=== PATIENT | male | born 1965 | race Two or more races ===

== ENCOUNTER 2016-03-07 09:35 | Outpatient (CLI) | payer BC, OTHER ==
[~2016-03-07 09:35] MED LIST: AMLO10TA4 PO; ASPI-605 PO; ATOR40TA PO; BENA20TA2 PO; METO50TA3 PO; TICA90TA PO
== END 2016-03-07 23:59 | disposition home or self-care (01) ==
LOC: WOU 09:35
PROVIDERS: ATTEND Podiatrist Foot & Ankle Surgery
DX: L84 Corns and callosities (principal); M79.672 Pain in left foot; B35.3 Tinea pedis; L60.3 Nail dystrophy; F17.200 Nicotine dependence, unspecified, uncomplicated; I10 Essential (primary) hypertension; I25.10 Atherosclerotic heart disease of native coronary artery without angina pectoris; Z95.5 Presence of coronary angioplasty implant and graft; Z79.82 Long term (current) use of aspirin
CPT/HCPCS: 11055; A6402

== ENCOUNTER 2016-03-17 09:29 | Outpatient (CLI) | payer BC, OTHER ==
[2016-03-17 10:07] LABS: BASOPHILS % (AUTO) 0.4 % (0.0-2.0); DIFF TOTAL % 100 %; EOSINOPHILS # (AUTO) 0.5 /CMM (0.0-0.7); EOSINOPHILS % (AUTO) 5.4 % (0.0-6.0); HEMATOCRIT 47 % (39-51); HEMOGLOBIN 16.2 g/dL (13.5-17.5); LYMPHOCYTES # (AUTO) 2.4 /CMM (0.8-4.8); LYMPHOCYTES % (AUTO) 27.7 % (20.0-44.0); MEAN CORPUSCULAR HEMOGLOBIN 31 PG (26.0-33.0); MEAN CORPUSCULAR HGB CONC 34 g/dl (31.0-36.0); MEAN CORPUSCULAR VOLUME 89 fL (80-96); MONOCYTES # (AUTO) 0.6 /CMM (0.1-1.30); MONOCYTES % (AUTO) 6.5 % (2.0-12.0); NEUTROPHILS # (AUTO) 5.1 /CMM (1.8-8.9); PLATELET COUNT (AUTO) 147 /CMM (150-450); RED BLOOD CELL COUNT(AUTO) 5.32 MIL/uL (4.5-6.0); WHITE BLOOD COUNT (AUTO) 8.5 K/uL (4.3-11.0)
[2016-03-17 10:12] LABS: KETONES,URINE NEGATIVE (NEGATIVE); LEUKOCYTE ESTERASE ,URINE NEGATIVE (NEGATIVE); PH,URINE 5.5 (5.0-8.0)
[2016-03-17 10:14] LABS: ADD UA MICROSCOPIC NO
[2016-03-17 10:27] LABS: BILIRUBIN,TOTAL 0.6 mg/dL (0.2-1.0); CALCIUM, SERUM 9.1 mg/dL (8.5-10.1); CREATININE 0.9 mg/dL (0.6-1.3); POTASSIUM 3.7 mmol/L (3.5-5.1); TOTAL PROTEIN, SERUM 7.2 g/dL (6.4-8.2)
[2016-03-17 10:39] LABS: THYROID STIMULATING HORMONE 1.651 uIU/mL (0.358-3.74)
[2016-03-18 13:22] LABS: VIT D, 25-HYDROXY 17.6 ng/mL (30.0-100.0)
== END 2016-03-17 23:59 | disposition home or self-care (01) ==
LOC: LAB 09:29
PROVIDERS: ATTEND Legal Medicine
DX: Z12.5 Encounter for screening for malignant neoplasm of prostate (principal); I10 Essential (primary) hypertension; E55.9 Vitamin D deficiency, unspecified; E78.00 Pure hypercholesterolemia, unspecified; N39.0 Urinary tract infection, site not specified; D64.9 Anemia, unspecified; E03.9 Hypothyroidism, unspecified; Z13.89 Encounter for screening for other disorder
CPT/HCPCS: 36415; 80053-TC; 80061-TC; 81000-TC; 82306; 84153-TC; 84402-TC; 84439-TC; 84443-TC; 84550-TC; 85025-TC

== ENCOUNTER 2016-12-01 07:50 | Outpatient (CLI) | payer BC ==
[2016-12-01 08:50] LABS: BASOPHILS # (AUTO) 0.1 /CMM (0.0-0.2); BASOPHILS % (AUTO) 0.6 % (0.0-2.0); EOSINOPHILS # (AUTO) 0.5 /CMM (0.0-0.7); HEMATOCRIT 43 % (39-51); HEMOGLOBIN 14.7 g/dL (13.5-17.5); LYMPHOCYTES # (AUTO) 3.1 /CMM (0.8-4.8); LYMPHOCYTES % (AUTO) 34.5 % (20.0-44.0); MEAN CORPUSCULAR HEMOGLOBIN 30 PG (26.0-33.0); MEAN CORPUSCULAR HGB CONC 34 g/dl (31.0-36.0); MEAN CORPUSCULAR VOLUME 89 fL (80-96); MONOCYTES # (AUTO) 0.7 /CMM (0.1-1.30); MONOCYTES % (AUTO) 7.7 % (2.0-12.0); NEUTROPHILS # (AUTO) 4.6 /CMM (1.8-8.9); NEUTROPHILS % (AUTO) 51.2 % (43.0-81.0); PLATELET COUNT (AUTO) 167 /CMM (150-450); RDW COEFFICIENT OF VARIATION 13.3 (11.5-15.0); RED BLOOD CELL COUNT(AUTO) 4.85 MIL/uL (4.5-6.0); WHITE BLOOD COUNT (AUTO) 8.9 K/uL (4.3-11.0)
[2016-12-01 09:12] LABS: APPEARANCE,URINE CLEAR (CLEAR); BILIRUBIN,URINE NEGATIVE (NEGATIVE); BLOOD, URINE NEGATIVE Ery/uL (NEGATIVE); COLOR,URINE YELLOW (YELLOW); KETONES,URINE NEGATIVE (NEGATIVE); LEUKOCYTE ESTERASE ,URINE NEGATIVE (NEGATIVE); NITRITE, URINE NEGATIVE (NEGATIVE); PH,URINE 6.5 (5.0-8.0); PROTEIN,URINE NEGATIVE (NEGATIVE); UGLUCOSE NEGATIVE (NEGATIVE); UROBILINOGEN,URINE 0.2 EU/dL (0.2)
[2016-12-01 09:24] LABS: ALBUMIN 3.6 g/dL (3.4-5.0); BILIRUBIN,TOTAL 0.4 mg/dL (0.2-1.0); CALCIUM, SERUM 8.6 mg/dL (8.5-10.1); CREATININE 0.7 mg/dL (0.6-1.3); POTASSIUM 3.8 mmol/L (3.5-5.1); TOTAL PROTEIN, SERUM 6.8 g/dL (6.4-8.2)
[2016-12-01 09:38] LABS: PROSTATE SPECIFIC ANTIGEN SCR 0.78 ng/mL (0.00-4.00); THYROID STIMULATING HORMONE 3.381 uIU/mL (0.358-3.74)
[2016-12-03 10:20] LABS: *TESTOSTERONE, FREE (DIRECT) 8.6 pg/mL (7.2-24.0)
== END 2016-12-01 23:59 | disposition home or self-care (01) ==
LOC: LAB 07:50
PROVIDERS: ATTEND Legal Medicine
DX: Z00.01 Encounter for general adult medical examination with abnormal findings (principal); E55.9 Vitamin D deficiency, unspecified; R79.89 Other specified abnormal findings of blood chemistry
CPT/HCPCS: 36415; 80053-TC; 80061-TC; 81000-TC; 82306; 84153-TC; 84402-TC; 84443-TC; 85025-TC

== ENCOUNTER 2017-01-01 13:28 | Outpatient (CLI) | payer BC | END 2017-01-01 23:59 | disposition home or self-care (01) | LOC: CARD 13:28 | PROVIDERS: ATTEND Legal Medicine | DX: I65.23 Occlusion and stenosis of bilateral carotid arteries (principal) | CPT/HCPCS: 93880-TC ==

== ENCOUNTER 2017-01-15 10:01 | Outpatient (CLI) | payer BC | END 2017-01-15 23:59 | disposition home or self-care (01) | LOC: MRI 10:01 | PROVIDERS: ATTEND Legal Medicine | DX: M48.02 Spinal stenosis, cervical region (principal); M25.78 Osteophyte, vertebrae | CPT/HCPCS: 72141-TC ==

== ENCOUNTER 2017-03-19 09:20 | Outpatient (CLI) | payer BC ==
[~2017-03-19 09:20] MED LIST changes: +METO50TA16 PO; -METO50TA3 PO
[2017-03-19 10:12] LABS: BASOPHILS % (AUTO) 0.2 % (0.0-2.0); EOSINOPHILS # (AUTO) 0.7 /CMM (0.0-0.7); EOSINOPHILS % (AUTO) 6.9 % (0.0-6.0); HEMATOCRIT 45 % (39-51); HEMOGLOBIN 15.7 g/dL (13.5-17.5); LYMPHOCYTES # (AUTO) 2.9 /CMM (0.8-4.8); LYMPHOCYTES % (AUTO) 29.7 % (20.0-44.0); MEAN CORPUSCULAR HEMOGLOBIN 31 PG (26.0-33.0); MEAN CORPUSCULAR HGB CONC 35 g/dl (31.0-36.0); MEAN CORPUSCULAR VOLUME 89 fL (80-96); MONOCYTES # (AUTO) 0.5 /CMM (0.1-1.30); NEUTROPHILS # (AUTO) 5.7 /CMM (1.8-8.9); NEUTROPHILS % (AUTO) 58.2 % (43.0-81.0); PLATELET COUNT (AUTO) 145 /CMM (150-450); RDW COEFFICIENT OF VARIATION 12.4 (11.5-15.0); RED BLOOD CELL COUNT(AUTO) 5.02 MIL/uL (4.5-6.0); WHITE BLOOD COUNT (AUTO) 9.7 K/uL (4.3-11.0)
[2017-03-19 10:49] LABS: ALBUMIN 3.7 g/dL (3.4-5.0); BILIRUBIN,TOTAL 0.4 mg/dL (0.2-1.0); CALCIUM, SERUM 9.2 mg/dL (8.5-10.1); CREATININE 0.9 mg/dL (0.6-1.3); POTASSIUM 4.3 mmol/L (3.5-5.1)
== END 2017-03-19 23:59 | disposition home or self-care (01) ==
LOC: LAB 09:20
PROVIDERS: ATTEND Legal Medicine
DX: E78.00 Pure hypercholesterolemia, unspecified (principal); I10 Essential (primary) hypertension; E03.9 Hypothyroidism, unspecified
CPT/HCPCS: 36415; 80053-TC; 80061-TC; 82306; 85025-TC

== ENCOUNTER 2017-04-24 07:22 | Outpatient (CLI) | payer BC | END 2017-04-24 23:59 | disposition home or self-care (01) | LOC: MRI 07:22 | PROVIDERS: ATTEND Legal Medicine | DX: I67.82 Cerebral ischemia (principal); J32.0 Chronic maxillary sinusitis | CPT/HCPCS: 70551-TC ==

== ENCOUNTER 2017-08-24 09:37 | Outpatient (CLI) | payer BC | END 2017-08-24 23:59 | disposition home or self-care (01) | LOC: RAD 09:37 | PROVIDERS: ATTEND Legal Medicine | DX: M79.89 Other specified soft tissue disorders (principal); M79.672 Pain in left foot | CPT/HCPCS: 73630-TC ==

== ENCOUNTER 2017-11-03 09:30 | Outpatient (CLI) | payer BC ==
[~2017-11-03 09:30] MED LIST changes: -AMLO10TA4 PO; -ATOR40TA PO; -BENA20TA2 PO; +BENA20TA9 PO; +CARV12.52 PO; +CLON-418 PO; +EZET10TA14 PO; -METO50TA16 PO; +PANT40TA4 PO; -TICA90TA PO; +TRAZ-182 PO
== END 2017-11-03 23:59 | disposition home or self-care (01) ==
LOC: MSC 09:30
PROVIDERS: ATTEND Anesthesiology
DX: G89.29 Other chronic pain (principal); M48.061 Spinal stenosis, lumbar region without neurogenic claudication

== ENCOUNTER 2017-11-05 14:01 | Outpatient (CLI) | payer BC | END 2017-11-05 23:59 | disposition home or self-care (01) | LOC: WOU 14:01 | PROVIDERS: ATTEND Podiatrist Foot & Ankle Surgery | DX: M67.472 Ganglion, left ankle and foot (principal); I25.10 Atherosclerotic heart disease of native coronary artery without angina pectoris; I10 Essential (primary) hypertension; Z95.5 Presence of coronary angioplasty implant and graft; R26.2 Difficulty in walking, not elsewhere classified | CPT/HCPCS: 99213; Z7610; G0463 ==

== ENCOUNTER → 2017-11-24 | Outpatient (CLI) | payer BC | END | disposition home or self-care (01) | LOC: MSC 11:00 | PROVIDERS: ATTEND Anesthesiology | DX: M46.96 Unspecified inflammatory spondylopathy, lumbar region (principal); M51.26 Other intervertebral disc displacement, lumbar region; M47.26 Other spondylosis with radiculopathy, lumbar region; M79.2 Neuralgia and neuritis, unspecified; F11.20 Opioid dependence, uncomplicated; R51 Headache; I10 Essential (primary) hypertension; I25.10 Atherosclerotic heart disease of native coronary artery without angina pectoris; Z95.5 Presence of coronary angioplasty implant and graft; M79.662 Pain in left lower leg; M79.661 Pain in right lower leg; M25.561 Pain in right knee ==

== ENCOUNTER 2018-02-23 09:30 | Outpatient (CLI) | payer BC | END 2018-02-23 23:59 | disposition home or self-care (01) | LOC: MSC 09:30 | PROVIDERS: ATTEND Anesthesiology | DX: M47.812 Spondylosis without myelopathy or radiculopathy, cervical region (principal); R51 Headache; M46.96 Unspecified inflammatory spondylopathy, lumbar region; M51.26 Other intervertebral disc displacement, lumbar region; M47.26 Other spondylosis with radiculopathy, lumbar region; M79.2 Neuralgia and neuritis, unspecified; F11.20 Opioid dependence, uncomplicated ==

== ENCOUNTER 2018-03-23 09:30 | Outpatient (CLI) | payer BC | END 2018-03-23 23:59 | disposition home or self-care (01) | LOC: MSC 09:30 | PROVIDERS: ATTEND Anesthesiology | DX: M46.96 Unspecified inflammatory spondylopathy, lumbar region (principal); M47.26 Other spondylosis with radiculopathy, lumbar region; M47.812 Spondylosis without myelopathy or radiculopathy, cervical region; M79.2 Neuralgia and neuritis, unspecified; R51 Headache; F11.20 Opioid dependence, uncomplicated ==

== ENCOUNTER 2018-04-20 08:30 | Outpatient (CLI) | payer BC | END 2018-04-20 23:59 | disposition home or self-care (01) | LOC: MSC 08:30 | PROVIDERS: ATTEND Anesthesiology | DX: M46.96 Unspecified inflammatory spondylopathy, lumbar region (principal); M51.26 Other intervertebral disc displacement, lumbar region; M47.26 Other spondylosis with radiculopathy, lumbar region; M79.2 Neuralgia and neuritis, unspecified; M47.812 Spondylosis without myelopathy or radiculopathy, cervical region; R51 Headache; F11.20 Opioid dependence, uncomplicated ==

== ENCOUNTER 2018-05-18 09:00 | Outpatient (CLI) | payer BC | END 2018-05-18 23:59 | disposition home or self-care (01) | LOC: MSC 09:00 | PROVIDERS: ATTEND Anesthesiology | DX: M47.812 Spondylosis without myelopathy or radiculopathy, cervical region (principal); M46.96 Unspecified inflammatory spondylopathy, lumbar region; M47.26 Other spondylosis with radiculopathy, lumbar region; M79.2 Neuralgia and neuritis, unspecified; R51 Headache; I10 Essential (primary) hypertension; F11.20 Opioid dependence, uncomplicated; I25.10 Atherosclerotic heart disease of native coronary artery without angina pectoris; Z95.5 Presence of coronary angioplasty implant and graft; Z79.899 Other long term (current) drug therapy; F17.200 Nicotine dependence, unspecified, uncomplicated ==

== ENCOUNTER 2018-08-03 10:30 | Outpatient (CLI) | payer BC | END 2018-08-03 23:59 | disposition home or self-care (01) | LOC: MSC 10:30 | PROVIDERS: ATTEND Anesthesiology | DX: M46.96 Unspecified inflammatory spondylopathy, lumbar region (principal); M51.26 Other intervertebral disc displacement, lumbar region; M47.26 Other spondylosis with radiculopathy, lumbar region; M47.812 Spondylosis without myelopathy or radiculopathy, cervical region; M79.2 Neuralgia and neuritis, unspecified; R51 Headache; F11.20 Opioid dependence, uncomplicated; I10 Essential (primary) hypertension; I25.10 Atherosclerotic heart disease of native coronary artery without angina pectoris; Z95.5 Presence of coronary angioplasty implant and graft ==

== ENCOUNTER → 2018-08-06 | Day surgery (SDC) | payer BC ==
[~2018-08-06] MED LIST changes: +BUPIVACAINE 0.25% 75 MG/30 ML VIAL ONE; +DEXAMETHASONE SOD PHOSPHATE 10 MG/ML VIAL ONE; +IOHEXOL 50 ML IV ONE; +LIDOCAINE HCL/PF 1% 30 ML SDV ONE; +METRONIDAZOLE 500MG/ NS 100ML 0 ML IV ONE; +methylPREDNISolone ACETATE 80 MG/ML VIAL ONE
== END | disposition home or self-care (01) ==
LOC: DS 07:36
PROVIDERS: ATTEND Anesthesiology
DX: M47.26 Other spondylosis with radiculopathy, lumbar region (principal); F11.20 Opioid dependence, uncomplicated
CPT/HCPCS: 62323; 72020; J1040; J3490; Q9967; A6209; J1100

== ENCOUNTER 2018-09-28 07:58 | Outpatient (CLI) | payer BC ==
[~2018-09-28 07:58] MED LIST changes: -BUPIVACAINE 0.25% 75 MG/30 ML VIAL ONE; -DEXAMETHASONE SOD PHOSPHATE 10 MG/ML VIAL ONE; -EZET10TA14 PO; +EZET10TA16 PO; -IOHEXOL 50 ML IV ONE; -LIDOCAINE HCL/PF 1% 30 ML SDV ONE; -METRONIDAZOLE 500MG/ NS 100ML 0 ML IV ONE; -methylPREDNISolone ACETATE 80 MG/ML VIAL ONE
[2018-09-28 08:49] LABS: ALBUMIN 3.6 g/dL (3.4-5.0); BILIRUBIN,TOTAL 0.4 mg/dL (0.2-1.0); CALCIUM, SERUM 8.8 mg/dL (8.5-10.1); CREATININE 0.9 mg/dL (0.6-1.3); POTASSIUM 4.9 mmol/L (3.5-5.1); TOTAL PROTEIN, SERUM 6.5 g/dL (6.4-8.2)
[2018-09-28 08:57] LABS: THYROID STIMULATING HORMONE 2.572 uIU/mL (0.358-3.74)
== END 2018-09-28 23:59 | disposition home or self-care (01) ==
LOC: LAB 07:58
PROVIDERS: ATTEND Internal Medicine Cardiovascular Disease
DX: I10 Essential (primary) hypertension (principal); E11.9 Type 2 diabetes mellitus without complications; E78.5 Hyperlipidemia, unspecified; R53.83 Other fatigue
CPT/HCPCS: 36415; 80053-TC; 80061-TC; 84443-TC

== ENCOUNTER 2018-09-28 08:30 | Outpatient (CLI) | payer BC | END 2018-09-28 23:59 | disposition home or self-care (01) | LOC: MSC 08:30 | PROVIDERS: ATTEND Anesthesiology | DX: M46.96 Unspecified inflammatory spondylopathy, lumbar region (principal); M51.26 Other intervertebral disc displacement, lumbar region; M47.26 Other spondylosis with radiculopathy, lumbar region; M47.812 Spondylosis without myelopathy or radiculopathy, cervical region; M79.2 Neuralgia and neuritis, unspecified; F11.20 Opioid dependence, uncomplicated; R51 Headache ==

== ENCOUNTER 2018-10-26 11:30 | Outpatient (CLI) | payer BC | END 2018-10-26 23:59 | disposition home or self-care (01) | LOC: MSC 11:30 | PROVIDERS: ATTEND Anesthesiology | DX: M46.96 Unspecified inflammatory spondylopathy, lumbar region (principal); M51.26 Other intervertebral disc displacement, lumbar region; M47.26 Other spondylosis with radiculopathy, lumbar region; M47.812 Spondylosis without myelopathy or radiculopathy, cervical region; M79.2 Neuralgia and neuritis, unspecified; R51 Headache; F11.20 Opioid dependence, uncomplicated; I10 Essential (primary) hypertension; I25.10 Atherosclerotic heart disease of native coronary artery without angina pectoris; Z95.5 Presence of coronary angioplasty implant and graft; Z79.899 Other long term (current) drug therapy ==

== ENCOUNTER → 2018-11-23 | Outpatient (CLI) | payer BC | END | disposition home or self-care (01) | LOC: MSC 08:45 | PROVIDERS: ATTEND Anesthesiology | DX: M46.96 Unspecified inflammatory spondylopathy, lumbar region (principal); M51.26 Other intervertebral disc displacement, lumbar region; M47.26 Other spondylosis with radiculopathy, lumbar region; M47.812 Spondylosis without myelopathy or radiculopathy, cervical region; M79.2 Neuralgia and neuritis, unspecified; R51 Headache; F11.20 Opioid dependence, uncomplicated ==

== ENCOUNTER → 2018-12-23 | Outpatient (CLI) | payer BC | END | disposition home or self-care (01) | LOC: MSC 09:30 | PROVIDERS: ATTEND Anesthesiology | DX: M46.96 Unspecified inflammatory spondylopathy, lumbar region (principal); M51.26 Other intervertebral disc displacement, lumbar region; M47.26 Other spondylosis with radiculopathy, lumbar region; M47.812 Spondylosis without myelopathy or radiculopathy, cervical region; R51 Headache; M79.2 Neuralgia and neuritis, unspecified; F11.20 Opioid dependence, uncomplicated ==

== ENCOUNTER → 2019-01-25 | Outpatient (CLI) | payer BC | END | disposition home or self-care (01) | LOC: MSC 08:40 | PROVIDERS: ATTEND Anesthesiology | DX: M46.96 Unspecified inflammatory spondylopathy, lumbar region (principal); M51.26 Other intervertebral disc displacement, lumbar region; M47.26 Other spondylosis with radiculopathy, lumbar region; M47.812 Spondylosis without myelopathy or radiculopathy, cervical region; R51 Headache; M79.2 Neuralgia and neuritis, unspecified; F11.20 Opioid dependence, uncomplicated ==

== ENCOUNTER → 2019-02-22 | Outpatient (CLI) | payer BC | END | disposition home or self-care (01) | LOC: MSC 08:30 | PROVIDERS: ATTEND Anesthesiology | DX: M46.96 Unspecified inflammatory spondylopathy, lumbar region (principal); M51.26 Other intervertebral disc displacement, lumbar region; M47.26 Other spondylosis with radiculopathy, lumbar region; M47.812 Spondylosis without myelopathy or radiculopathy, cervical region; R51 Headache; M79.2 Neuralgia and neuritis, unspecified; F11.20 Opioid dependence, uncomplicated ==

== ENCOUNTER 2019-03-22 09:34 | Outpatient (CLI) | payer BC ==
[2019-03-22 12:34] LABS: BASOPHILS % (AUTO) 0.5 % (0.0-2.0); EOSINOPHILS % (AUTO) 5.7 % (0.0-6.0); HEMATOCRIT 45 % (39-51); HEMOGLOBIN 15.2 g/dL (13.5-17.5); LYMPHOCYTES # (AUTO) 1.9 /CMM (0.8-4.8); LYMPHOCYTES % (AUTO) 22.7 % (20.0-44.0); MEAN CORPUSCULAR HGB CONC 34 g/dl (31.0-36.0); MEAN CORPUSCULAR VOLUME 91 fL (80-96); MONOCYTES # (AUTO) 0.4 /CMM (0.1-1.30); MONOCYTES % (AUTO) 5.1 % (2.0-12.0); NEUTROPHILS # (AUTO) 5.7 /CMM (1.8-8.9); PLATELET COUNT (AUTO) 133 /CMM (150-450); RED BLOOD CELL COUNT(AUTO) 4.93 MIL/uL (4.5-6.0); WHITE BLOOD COUNT (AUTO) 8.6 K/uL (4.3-11.0)
[2019-03-22 12:46] LABS: ALBUMIN 3.8 g/dL (3.4-5.0); BILIRUBIN,TOTAL 0.5 mg/dL (0.2-1.0); CALCIUM, SERUM 8.8 mg/dL (8.5-10.1); CREATININE 0.8 mg/dL (0.6-1.3); POTASSIUM 3.8 mmol/L (3.5-5.1); TOTAL PROTEIN, SERUM 6.6 g/dL (6.4-8.2)
== END 2019-03-22 23:59 | disposition home or self-care (01) ==
LOC: MSC 09:34
PROVIDERS: ATTEND Anesthesiology
DX: I10 Essential (primary) hypertension (principal); E78.5 Hyperlipidemia, unspecified
CPT/HCPCS: 36415; 80053-TC; 80061-TC; 85025-TC

== ENCOUNTER → 2019-04-26 | Outpatient (CLI) | payer BC | END | disposition home or self-care (01) | LOC: MSC 08:20 | PROVIDERS: ATTEND Anesthesiology | DX: M46.96 Unspecified inflammatory spondylopathy, lumbar region (principal); M51.26 Other intervertebral disc displacement, lumbar region; M47.26 Other spondylosis with radiculopathy, lumbar region; M47.812 Spondylosis without myelopathy or radiculopathy, cervical region; M54.2 Cervicalgia; R51 Headache; M79.2 Neuralgia and neuritis, unspecified; I25.10 Atherosclerotic heart disease of native coronary artery without angina pectoris; Z95.5 Presence of coronary angioplasty implant and graft; I10 Essential (primary) hypertension; F11.20 Opioid dependence, uncomplicated; Z79.899 Other long term (current) drug therapy ==

== ENCOUNTER 2019-05-24 08:15 | Outpatient (CLI) | payer BC | END 2019-05-24 23:59 | disposition home or self-care (01) | LOC: MSC 08:15 | PROVIDERS: ATTEND Anesthesiology | DX: M46.96 Unspecified inflammatory spondylopathy, lumbar region (principal); M51.26 Other intervertebral disc displacement, lumbar region; M47.26 Other spondylosis with radiculopathy, lumbar region; M47.812 Spondylosis without myelopathy or radiculopathy, cervical region; M79.2 Neuralgia and neuritis, unspecified; R51 Headache; F11.20 Opioid dependence, uncomplicated; Z79.899 Other long term (current) drug therapy ==

== ENCOUNTER → 2019-06-21 | Outpatient (CLI) | payer BC | END | disposition home or self-care (01) | LOC: MSC 08:25 | PROVIDERS: ATTEND Anesthesiology | DX: M47.26 Other spondylosis with radiculopathy, lumbar region (principal); M46.96 Unspecified inflammatory spondylopathy, lumbar region; M51.26 Other intervertebral disc displacement, lumbar region; M47.812 Spondylosis without myelopathy or radiculopathy, cervical region; R51 Headache; M79.2 Neuralgia and neuritis, unspecified; I10 Essential (primary) hypertension; I25.10 Atherosclerotic heart disease of native coronary artery without angina pectoris; Z95.5 Presence of coronary angioplasty implant and graft; F11.20 Opioid dependence, uncomplicated; F17.200 Nicotine dependence, unspecified, uncomplicated ==

== ENCOUNTER 2019-07-19 09:10 | Outpatient (CLI) | payer BC | END 2019-07-19 23:59 | disposition home or self-care (01) | LOC: MSC 09:10 | PROVIDERS: ATTEND Anesthesiology | DX: M46.96 Unspecified inflammatory spondylopathy, lumbar region (principal); M51.26 Other intervertebral disc displacement, lumbar region; M47.26 Other spondylosis with radiculopathy, lumbar region; M47.812 Spondylosis without myelopathy or radiculopathy, cervical region; R51 Headache; M79.2 Neuralgia and neuritis, unspecified; I10 Essential (primary) hypertension; Z95.5 Presence of coronary angioplasty implant and graft; F11.20 Opioid dependence, uncomplicated ==

== ENCOUNTER 2019-08-16 08:15 | Outpatient (CLI) | payer BC | END 2019-08-16 23:59 | disposition home or self-care (01) | LOC: MSC 08:15 | PROVIDERS: ATTEND Anesthesiology | DX: M46.96 Unspecified inflammatory spondylopathy, lumbar region (principal); M51.26 Other intervertebral disc displacement, lumbar region; M47.26 Other spondylosis with radiculopathy, lumbar region; M47.812 Spondylosis without myelopathy or radiculopathy, cervical region; M79.2 Neuralgia and neuritis, unspecified; R51 Headache; F11.20 Opioid dependence, uncomplicated; I10 Essential (primary) hypertension; Z95.5 Presence of coronary angioplasty implant and graft; F17.200 Nicotine dependence, unspecified, uncomplicated; Z79.899 Other long term (current) drug therapy ==

== ENCOUNTER → 2019-09-27 | Outpatient (CLI) | payer BC | END | disposition home or self-care (01) | LOC: MSC 08:20 | PROVIDERS: ATTEND Anesthesiology | DX: M51.26 Other intervertebral disc displacement, lumbar region (principal); M47.26 Other spondylosis with radiculopathy, lumbar region; M46.96 Unspecified inflammatory spondylopathy, lumbar region; M47.812 Spondylosis without myelopathy or radiculopathy, cervical region; R51 Headache; M79.2 Neuralgia and neuritis, unspecified; I10 Essential (primary) hypertension; F11.20 Opioid dependence, uncomplicated ==

== ENCOUNTER → 2019-10-25 | Outpatient (CLI) | payer BC | END | disposition home or self-care (01) | LOC: MSC 08:15 | PROVIDERS: ATTEND Anesthesiology | DX: M46.96 Unspecified inflammatory spondylopathy, lumbar region (principal); M47.26 Other spondylosis with radiculopathy, lumbar region; M51.26 Other intervertebral disc displacement, lumbar region; M47.812 Spondylosis without myelopathy or radiculopathy, cervical region; M79.2 Neuralgia and neuritis, unspecified; R51 Headache; F11.20 Opioid dependence, uncomplicated; I10 Essential (primary) hypertension; Z95.5 Presence of coronary angioplasty implant and graft ==

== ENCOUNTER → 2019-12-06 | Outpatient (CLI) | payer BC ==
[~2019-12-06] MED LIST changes: -PANT40TA4 PO; +PANT40TA49 PO
== END | disposition home or self-care (01) ==
LOC: MSC 09:40
PROVIDERS: ATTEND Anesthesiology
DX: M46.96 Unspecified inflammatory spondylopathy, lumbar region (principal); M51.26 Other intervertebral disc displacement, lumbar region; M47.26 Other spondylosis with radiculopathy, lumbar region; M47.812 Spondylosis without myelopathy or radiculopathy, cervical region; M79.2 Neuralgia and neuritis, unspecified; R51.9 Headache, unspecified; I10 Essential (primary) hypertension; F11.20 Opioid dependence, uncomplicated

== ENCOUNTER → 2020-01-10 | Outpatient (CLI) | payer BC ==
[~2020-01-10] MED LIST changes: -EZET10TA16 PO; +EZET10TA6 PO
== END | disposition home or self-care (01) ==
LOC: MSC 08:25
PROVIDERS: ATTEND Anesthesiology
DX: M46.96 Unspecified inflammatory spondylopathy, lumbar region (principal); M51.26 Other intervertebral disc displacement, lumbar region; M47.26 Other spondylosis with radiculopathy, lumbar region; M47.812 Spondylosis without myelopathy or radiculopathy, cervical region; M79.2 Neuralgia and neuritis, unspecified; R51.9 Headache, unspecified; F11.20 Opioid dependence, uncomplicated

== ENCOUNTER 2020-02-07 08:51 | Outpatient (CLI) | payer BC | END 2020-02-07 23:59 | disposition home or self-care (01) | LOC: MSC 08:51 | PROVIDERS: ATTEND Anesthesiology | DX: M46.96 Unspecified inflammatory spondylopathy, lumbar region (principal); M51.26 Other intervertebral disc displacement, lumbar region; M47.26 Other spondylosis with radiculopathy, lumbar region; M47.812 Spondylosis without myelopathy or radiculopathy, cervical region; M79.2 Neuralgia and neuritis, unspecified; R51.9 Headache, unspecified; I10 Essential (primary) hypertension; Z98.61 Coronary angioplasty status; F11.20 Opioid dependence, uncomplicated ==

== ENCOUNTER 2020-03-06 08:25 | Outpatient (CLI) | payer BC | END 2020-03-06 23:59 | disposition home or self-care (01) | LOC: MSC 08:25 | PROVIDERS: ATTEND Anesthesiology | DX: M46.96 Unspecified inflammatory spondylopathy, lumbar region (principal); M51.26 Other intervertebral disc displacement, lumbar region; M47.26 Other spondylosis with radiculopathy, lumbar region; M47.812 Spondylosis without myelopathy or radiculopathy, cervical region; M79.2 Neuralgia and neuritis, unspecified; R51.9 Headache, unspecified; F11.20 Opioid dependence, uncomplicated ==

== ENCOUNTER → 2020-04-03 | Outpatient (CLI) | payer BC | END | disposition home or self-care (01) | LOC: MSC 08:30 | PROVIDERS: ATTEND Anesthesiology | DX: M46.96 Unspecified inflammatory spondylopathy, lumbar region (principal); M51.26 Other intervertebral disc displacement, lumbar region; M47.26 Other spondylosis with radiculopathy, lumbar region; M47.812 Spondylosis without myelopathy or radiculopathy, cervical region; M79.2 Neuralgia and neuritis, unspecified; R51.9 Headache, unspecified; F11.20 Opioid dependence, uncomplicated ==

== ENCOUNTER 2020-04-04 11:50 | Outpatient (CLI) | payer BC | END 2020-04-04 23:59 | disposition home or self-care (01) | LOC: MRI 11:50 | PROVIDERS: ATTEND Legal Medicine | DX: M47.812 Spondylosis without myelopathy or radiculopathy, cervical region (principal); M48.03 Spinal stenosis, cervicothoracic region; M25.78 Osteophyte, vertebrae; M50.223 Other cervical disc displacement at C6-C7 level; J32.0 Chronic maxillary sinusitis | CPT/HCPCS: 70551-TC; 72141-TC ==

== ENCOUNTER 2020-04-05 07:37 | Outpatient (CLI) | payer BC ==
[2020-04-05 09:05] LABS: BASOPHILS # (AUTO) 0.1 /CMM (0.0-0.2); BASOPHILS % (AUTO) 0.6 % (0.0-2.0); EOSINOPHILS % (AUTO) 6.4 % (0.0-6.0); HEMATOCRIT 41 % (39-51); HEMOGLOBIN 14.1 g/dL (13.5-17.5); LYMPHOCYTES # (AUTO) 2.4 /CMM (0.8-4.8); LYMPHOCYTES % (AUTO) 30.2 % (20.0-44.0); MEAN CORPUSCULAR HGB CONC 34 g/dl (31.0-36.0); MEAN CORPUSCULAR VOLUME 90 fL (80-96); MONOCYTES # (AUTO) 0.5 /CMM (0.1-1.30); MONOCYTES % (AUTO) 5.7 % (2.0-12.0); NEUTROPHILS # (AUTO) 4.6 /CMM (1.8-8.9); NEUTROPHILS % (AUTO) 57.1 % (43.0-81.0); PLATELET COUNT (AUTO) 148 /CMM (150-450); RED BLOOD CELL COUNT(AUTO) 4.55 MIL/uL (4.5-6.0); WHITE BLOOD COUNT (AUTO) 8.1 K/uL (4.3-11.0)
[2020-04-05 09:16] LABS: BILIRUBIN,URINE NEGATIVE (NEGATIVE); COLOR,URINE YELLOW (YELLOW); LEUKOCYTE ESTERASE ,URINE NEGATIVE (NEGATIVE); NITRITE, URINE NEGATIVE (NEGATIVE); PH,URINE 5.5 (5.0-8.0); PROTEIN,URINE NEGATIVE (NEGATIVE); UGLUCOSE NEGATIVE (NEGATIVE); UROBILINOGEN,URINE 0.2 EU/dL (0.2)
[2020-04-05 09:41] LABS: ALBUMIN 3.7 g/dL (3.4-5.0); BILIRUBIN,TOTAL 0.2 mg/dL (0.2-1.0); CREATININE 0.9 mg/dL (0.6-1.3); POTASSIUM 4.1 mmol/L (3.5-5.1); TOTAL PROTEIN, SERUM 6.9 g/dL (6.4-8.2)
[2020-04-05 10:01] LABS: PROSTATE SPECIFIC ANTIGEN SCR 1.36 ng/mL (0.00-4.00); THYROID STIMULATING HORMONE 2.796 uIU/mL (0.358-3.74); URIC ACID 5.5 mg/dL (2.6-7.2)
== END 2020-04-05 23:59 | disposition home or self-care (01) ==
LOC: LAB 07:37
PROVIDERS: ATTEND Legal Medicine
DX: I10 Essential (primary) hypertension (principal); E03.9 Hypothyroidism, unspecified; D64.9 Anemia, unspecified; E78.00 Pure hypercholesterolemia, unspecified; E55.9 Vitamin D deficiency, unspecified; Z00.00 Encounter for general adult medical examination without abnormal findings
CPT/HCPCS: 36415; 80053-TC; 80061-TC; 82306; 82626; 82728-TC; 83540-TC; 84153-TC; 84402; 84403; 84439-TC; 84443-TC; 84550-TC; 85025-TC

== ENCOUNTER 2020-05-08 10:30 | Outpatient (CLI) | payer BC | END 2020-05-08 23:59 | disposition home or self-care (01) | LOC: MSC 10:30 | PROVIDERS: ATTEND Anesthesiology | DX: M51.16 Intervertebral disc disorders with radiculopathy, lumbar region (principal); F11.20 Opioid dependence, uncomplicated; M46.96 Unspecified inflammatory spondylopathy, lumbar region; R51.0 Headache with orthostatic component, not elsewhere classified; M47.812 Spondylosis without myelopathy or radiculopathy, cervical region; M79.2 Neuralgia and neuritis, unspecified ==

== ENCOUNTER → 2020-06-05 | Outpatient (CLI) | payer BC | END | disposition home or self-care (01) | LOC: MSC 12:50 | PROVIDERS: ATTEND Anesthesiology | DX: M46.96 Unspecified inflammatory spondylopathy, lumbar region (principal); M51.26 Other intervertebral disc displacement, lumbar region; M47.26 Other spondylosis with radiculopathy, lumbar region; M47.812 Spondylosis without myelopathy or radiculopathy, cervical region; M79.2 Neuralgia and neuritis, unspecified; R51.9 Headache, unspecified; F11.20 Opioid dependence, uncomplicated ==

== ENCOUNTER → 2020-07-03 | Outpatient (CLI) | payer BC | END | disposition home or self-care (01) | LOC: MSC 08:45 | PROVIDERS: ATTEND Anesthesiology | DX: M46.96 Unspecified inflammatory spondylopathy, lumbar region (principal); M51.26 Other intervertebral disc displacement, lumbar region; M47.26 Other spondylosis with radiculopathy, lumbar region; M47.812 Spondylosis without myelopathy or radiculopathy, cervical region; F11.20 Opioid dependence, uncomplicated; M79.2 Neuralgia and neuritis, unspecified; R51.9 Headache, unspecified ==

== ENCOUNTER 2020-07-31 08:55 | Outpatient (CLI) | payer BC | END 2020-07-31 23:59 | disposition home or self-care (01) | LOC: MSC 08:55 | PROVIDERS: ATTEND Anesthesiology | DX: M51.16 Intervertebral disc disorders with radiculopathy, lumbar region (principal); M47.26 Other spondylosis with radiculopathy, lumbar region; R51.9 Headache, unspecified; M47.812 Spondylosis without myelopathy or radiculopathy, cervical region; F11.20 Opioid dependence, uncomplicated; M46.96 Unspecified inflammatory spondylopathy, lumbar region; F17.200 Nicotine dependence, unspecified, uncomplicated; Z79.899 Other long term (current) drug therapy ==

== ENCOUNTER 2020-08-28 09:16 | Outpatient (CLI) | payer BC | END 2020-08-28 23:59 | disposition home or self-care (01) | LOC: MSC 09:16 | PROVIDERS: ATTEND Anesthesiology | DX: M46.96 Unspecified inflammatory spondylopathy, lumbar region (principal); M51.26 Other intervertebral disc displacement, lumbar region; M47.26 Other spondylosis with radiculopathy, lumbar region; M47.812 Spondylosis without myelopathy or radiculopathy, cervical region; F11.20 Opioid dependence, uncomplicated; M79.2 Neuralgia and neuritis, unspecified; R51.9 Headache, unspecified ==

== ENCOUNTER 2020-10-09 09:25 | Outpatient (CLI) | payer BC ==
[~2020-10-09 09:25] MED LIST changes: +EZET10TA16 PO; -EZET10TA6 PO
== END 2020-10-09 23:59 | disposition home or self-care (01) ==
LOC: MSC 09:25
PROVIDERS: ATTEND Anesthesiology
DX: M51.26 Other intervertebral disc displacement, lumbar region (principal); M47.26 Other spondylosis with radiculopathy, lumbar region; M46.96 Unspecified inflammatory spondylopathy, lumbar region; M47.812 Spondylosis without myelopathy or radiculopathy, cervical region; F11.20 Opioid dependence, uncomplicated; R51.9 Headache, unspecified; M79.2 Neuralgia and neuritis, unspecified

== ENCOUNTER 2020-11-13 08:41 | Outpatient (CLI) | payer BC ==
[2020-11-13 09:17] LABS: BASOPHILS # (AUTO) 0.1 K/uL (0.0-0.2); BASOPHILS % (AUTO) 0.7 % (0.0-2.0); EOSINOPHILS % (AUTO) 7.5 % (0.0-6.0); HEMATOCRIT 45 % (39-51); HEMOGLOBIN 15.4 g/dL (13.5-17.5); LYMPHOCYTES # (AUTO) 2.1 K/uL (0.8-4.8); LYMPHOCYTES % (AUTO) 22.5 % (20.0-44.0); MEAN CORPUSCULAR HGB CONC 34 g/dl (31.0-36.0); MEAN CORPUSCULAR VOLUME 94 fL (80-96); MONOCYTES # (AUTO) 0.6 K/uL (0.1-1.30); MONOCYTES % (AUTO) 6.7 % (2.0-12.0); NEUTROPHILS % (AUTO) 62.6 % (43.0-81.0); PLATELET COUNT (AUTO) 143 K/uL (150-450); WHITE BLOOD COUNT (AUTO) 9.6 K/uL (4.3-11.0)
[2020-11-13 09:43] LABS: BILIRUBIN,TOTAL 0.7 mg/dL (0.2-1.0); CALCIUM, SERUM 8.5 mg/dL (8.5-10.1); CREATININE 0.8 mg/dL (0.6-1.3); POTASSIUM 4.7 mmol/L (3.5-5.1); TOTAL PROTEIN, SERUM 6.9 g/dL (6.4-8.2)
[2020-11-13 10:01] LABS: PROSTATE SPECIFIC ANTIGEN SCR 0.91 ng/mL (0.00-4.00); THYROID STIMULATING HORMONE 1.291 uIU/mL (0.358-3.74)
== END 2020-11-13 23:59 | disposition home or self-care (01) ==
LOC: LAB 08:41
PROVIDERS: ATTEND Legal Medicine
DX: E11.9 Type 2 diabetes mellitus without complications (principal); E03.9 Hypothyroidism, unspecified; E78.5 Hyperlipidemia, unspecified; R53.83 Other fatigue; R97.20 Elevated prostate specific antigen [PSA]
CPT/HCPCS: 36415; 80053-TC; 80061-TC; 84153-TC; 84443-TC; 85025-TC

== ENCOUNTER 2020-11-13 09:00 | Outpatient (CLI) | payer BC | END 2020-11-13 23:59 | disposition home or self-care (01) | LOC: MSC 09:00 | PROVIDERS: ATTEND Anesthesiology | DX: M51.26 Other intervertebral disc displacement, lumbar region (principal); M46.96 Unspecified inflammatory spondylopathy, lumbar region; M47.26 Other spondylosis with radiculopathy, lumbar region; M47.812 Spondylosis without myelopathy or radiculopathy, cervical region; F11.20 Opioid dependence, uncomplicated; M79.2 Neuralgia and neuritis, unspecified; R51.9 Headache, unspecified ==

== ENCOUNTER 2020-12-11 09:20 | Outpatient (CLI) | payer BC | END 2020-12-11 23:59 | disposition home or self-care (01) | LOC: MSC 09:20 | PROVIDERS: ATTEND Anesthesiology | DX: M46.96 Unspecified inflammatory spondylopathy, lumbar region (principal); M51.26 Other intervertebral disc displacement, lumbar region; M47.26 Other spondylosis with radiculopathy, lumbar region; M47.812 Spondylosis without myelopathy or radiculopathy, cervical region; F11.20 Opioid dependence, uncomplicated; M79.2 Neuralgia and neuritis, unspecified; R51.9 Headache, unspecified ==

== ENCOUNTER 2021-01-08 09:50 | Outpatient (CLI) | payer BC | END 2021-01-08 23:59 | disposition home or self-care (01) | LOC: MSC 09:50 | PROVIDERS: ATTEND Anesthesiology | DX: M46.96 Unspecified inflammatory spondylopathy, lumbar region (principal); M51.26 Other intervertebral disc displacement, lumbar region; M47.26 Other spondylosis with radiculopathy, lumbar region; M47.812 Spondylosis without myelopathy or radiculopathy, cervical region; F11.20 Opioid dependence, uncomplicated; M79.2 Neuralgia and neuritis, unspecified; F17.200 Nicotine dependence, unspecified, uncomplicated ==

== ENCOUNTER 2021-02-05 09:30 | Outpatient (CLI) | payer BC | END 2021-02-05 23:59 | disposition home or self-care (01) | LOC: MSC 09:30 | PROVIDERS: ATTEND Anesthesiology | DX: M25.511 Pain in right shoulder (principal); M46.96 Unspecified inflammatory spondylopathy, lumbar region; M47.26 Other spondylosis with radiculopathy, lumbar region; M51.26 Other intervertebral disc displacement, lumbar region; M47.812 Spondylosis without myelopathy or radiculopathy, cervical region; F11.20 Opioid dependence, uncomplicated; M79.2 Neuralgia and neuritis, unspecified; R51.9 Headache, unspecified ==

== ENCOUNTER 2021-03-12 08:20 | Outpatient (CLI) | payer BC | END 2021-03-12 23:59 | disposition home or self-care (01) | LOC: MSC 08:20 | PROVIDERS: ATTEND Anesthesiology | DX: M46.96 Unspecified inflammatory spondylopathy, lumbar region (principal); M47.26 Other spondylosis with radiculopathy, lumbar region; M51.26 Other intervertebral disc displacement, lumbar region; M47.812 Spondylosis without myelopathy or radiculopathy, cervical region; F11.20 Opioid dependence, uncomplicated; M79.2 Neuralgia and neuritis, unspecified; R51.9 Headache, unspecified; Z79.899 Other long term (current) drug therapy; Z79.1 Long term (current) use of non-steroidal anti-inflammatories (NSAID) ==

== ENCOUNTER → 2021-04-02 | Outpatient (CLI) | payer BC | END | disposition home or self-care (01) | LOC: MSC 12:00 | PROVIDERS: ATTEND Anesthesiology | DX: M47.812 Spondylosis without myelopathy or radiculopathy, cervical region (principal); M46.96 Unspecified inflammatory spondylopathy, lumbar region; M51.26 Other intervertebral disc displacement, lumbar region; M47.26 Other spondylosis with radiculopathy, lumbar region; F11.20 Opioid dependence, uncomplicated; M79.2 Neuralgia and neuritis, unspecified; R51.9 Headache, unspecified; F17.200 Nicotine dependence, unspecified, uncomplicated ==

== ENCOUNTER 2021-04-30 08:40 | Outpatient (CLI) | payer BC | END 2021-04-30 23:59 | disposition home or self-care (01) | LOC: MSC 08:40 | PROVIDERS: ATTEND Anesthesiology | DX: M46.96 Unspecified inflammatory spondylopathy, lumbar region (principal); M51.26 Other intervertebral disc displacement, lumbar region; M47.26 Other spondylosis with radiculopathy, lumbar region; M47.812 Spondylosis without myelopathy or radiculopathy, cervical region; F11.20 Opioid dependence, uncomplicated; M79.2 Neuralgia and neuritis, unspecified; R51.9 Headache, unspecified ==

== ENCOUNTER 2021-06-05 08:50 | Outpatient (CLI) | payer BC ==
[2021-07-05] MEDS ORDERED: AMOX-430 PO (12:37)
[2021-07-05] MEDS ORDERED: METH4TAB17 PO (12:37)
[2021-07-05] MEDS ORDERED: ALBU6.7H9 INH (12:37)
[2021-07-05] MEDS ORDERED: PROM118S5 PO (12:37)
[2021-07-05] MEDS ORDERED: ALBU18HF2 INH (12:37)
== END 2021-06-05 23:59 | disposition home or self-care (01) ==
LOC: MSC 08:50
PROVIDERS: ATTEND Anesthesiology
DX: M46.96 Unspecified inflammatory spondylopathy, lumbar region (principal); M51.26 Other intervertebral disc displacement, lumbar region; M47.26 Other spondylosis with radiculopathy, lumbar region; M47.812 Spondylosis without myelopathy or radiculopathy, cervical region; F11.20 Opioid dependence, uncomplicated; M79.2 Neuralgia and neuritis, unspecified; R51.9 Headache, unspecified

== ENCOUNTER 2021-06-26 13:11 | Emergency (ER) | payer BC ==
[~2021-06-26] VITALS: Ht 182.9 cm; Wt 97.1 kg
--- NOTE | 2021-06-26 13:18 | NUR ---
BIB c/o pain to left heel, R hip, chest and back s/p fell off the ladder about 10ft high x yesterday, -ko. The patient rates pains 10/10. No apparent deformity noted. Will continue to monitor the patient.
--- NOTE | 2021-06-26 14:16 | NUR ---
DR IRVING AT THE BEDSIDE
[2021-06-26 15:19] VITALS: BP 133/82
--- NOTE | 2021-06-26 15:19 | NUR ---
Patient discharged to home in stable condition. Written and verbal after care instructions given. Patient verbalizes understanding of instruction.
[2021-07-05] MEDS ORDERED: AMOX-430 PO (12:37)
[2021-07-05] MEDS ORDERED: METH4TAB17 PO (12:37)
[2021-07-05] MEDS ORDERED: PROM118S5 PO (12:37)
[2021-07-05] MEDS ORDERED: ALBU6.7H9 INH (12:37)
[2021-07-05] MEDS ORDERED: ALBU18HF2 INH (12:37)
== END 2021-06-26 15:19 | disposition home or self-care (01) ==
LOC: ER 13:21
DX: S90.32XA Contusion of left foot, initial encounter (principal); S70.01XA Contusion of right hip, initial encounter; S30.0XXA Contusion of lower back and pelvis, initial encounter; S20.219A Contusion of unspecified front wall of thorax, initial encounter; I10 Essential (primary) hypertension; F17.210 Nicotine dependence, cigarettes, uncomplicated; Z79.899 Other long term (current) drug therapy; Z98.890 Other specified postprocedural states; Z79.82 Long term (current) use of aspirin; W11.XXXA Fall on and from ladder, initial encounter; Y93.89 Activity, other specified; Y92.89 Other specified places as the place of occurrence of the external cause; Y99.8 Other external cause status
CPT/HCPCS: 71250-TC; 73590-TC; 73630-TC

== ENCOUNTER 2021-07-02 10:17 | Outpatient (CLI) | payer BC ==
[2021-07-04] MEDS ORDERED: methylPREDNISolone SOD SUCC 125 MG/2ML VIAL ONE (22:40)
[2021-07-05] MEDS ORDERED: ALBU18HF2 INH (12:37)
[2021-07-05] MEDS ORDERED: METH4TAB17 PO (12:37)
[2021-07-05] MEDS ORDERED: ALBU6.7H9 INH (12:37)
[2021-07-05] MEDS ORDERED: AMOX-430 PO (12:37)
[2021-07-05] MEDS ORDERED: PROM118S5 PO (12:37)
== END 2021-07-02 23:59 | disposition home or self-care (01) ==
LOC: MSC 10:17
PROVIDERS: ATTEND Anesthesiology
DX: M47.812 Spondylosis without myelopathy or radiculopathy, cervical region (principal); M47.26 Other spondylosis with radiculopathy, lumbar region; M46.96 Unspecified inflammatory spondylopathy, lumbar region; M51.26 Other intervertebral disc displacement, lumbar region; R51.9 Headache, unspecified; F11.20 Opioid dependence, uncomplicated; M79.2 Neuralgia and neuritis, unspecified; Z76.0 Encounter for issue of repeat prescription
CPT/HCPCS: J2930

== ENCOUNTER 2021-07-04 21:50 | Inpatient (IN) | payer BC ==
[~2021-07-04] VITALS: Ht 180.3 cm; Wt 100.7 kg
[2021-07-04] MEDS ORDERED: IPRATROPIUM NEB FS 0.5 MG/2.5 ML AMPUL.NEB NEB ONE (22:30)
[2021-07-04] MEDS ORDERED: methylPREDNISolone SOD SUCC 125 MG/2ML VIAL IV ONE (22:30)
[2021-07-04] MEDS ORDERED: ALBUTEROL FS 2.5 MG/0.5 ML VIAL.NEB NEB ONE (22:30)
[2021-07-04] MEDS ORDERED: IPRATROPIUM NEB FS 0.5 MG/2.5 ML AMPUL.NEB ONE (22:31)
[2021-07-04] MEDS ORDERED: ALBUTEROL FS 2.5 MG/0.5 ML VIAL.NEB ONE (22:31)
[2021-07-04 22:57] LABS: BASOPHILS % (AUTO) 0.2 % (0.0-2.0); EOSINOPHILS % (AUTO) 5.5 % (0.0-6.0); HEMATOCRIT 40 % (39-51); HEMOGLOBIN 13.5 g/dL (13.5-17.5); LYMPHOCYTES % (AUTO) 8.1 % (20.0-44.0); MEAN CORPUSCULAR HGB CONC 34 g/dl (31.0-36.0); MEAN CORPUSCULAR VOLUME 94 fL (80-96); MONOCYTES % (AUTO) 8.3 % (2.0-12.0); NEUTROPHILS # (AUTO) 9.2 K/uL (1.8-8.9); NEUTROPHILS % (AUTO) 77.9 % (43.0-81.0); PLATELET COUNT (AUTO) 128 K/uL (150-450); RED BLOOD CELL COUNT(AUTO) 4.28 MIL/uL (4.5-6.0); WHITE BLOOD COUNT (AUTO) 11.8 K/uL (4.3-11.0)
[2021-07-04 23:09] LABS: CALCIUM, SERUM 8.4 mg/dL (8.5-10.1); CARBON DIOXIDE 22 mmol/L (21-32); CHLORIDE 103 mmol/L (98-107); CREATININE 1.1 mg/dL (0.6-1.3); GLUCOSE 160 mg/dL (74-106); POTASSIUM 4.1 mmol/L (3.5-5.1); SODIUM SERUM 135 mmol/L (136-145); UREA NITROGEN, BLOOD 15 mg/dL (7-18)
[2021-07-04 23:22] LABS: ALANINE AMINOTRANSFERASE 29 U/L (12-78); ALBUMIN 3.4 g/dL (3.4-5.0); ALKALINE PHOSPHATASE 113 U/L (46-116); ASPARTATE AMINOTRANSFERASE 15 U/L (15-37); BILIRUBIN,DIRECT 0.2 mg/dL (0.0-0.2); BILIRUBIN,TOTAL 0.7 mg/dL (0.2-1.0); TOTAL PROTEIN, SERUM 6.6 g/dL (6.4-8.2)
[2021-07-05 01:00] VITALS: BP 133/71
[2021-07-05] MEDS ORDERED: ENOXAPARIN SODIUM 40 MG/0.4 ML DISP.SYRIN SQ SCH (01:30)
[2021-07-05] MEDS ORDERED: ALBUTEROL FS 2.5 MG/0.5 ML VIAL.NEB NEB PRN (01:30)
[2021-07-05] MEDS ORDERED: ACETAMINOPHEN 650 MG/20.3 ML UDC NG PRN (01:30)
[2021-07-05] MEDS ORDERED: CLONIDINE HCL 0.1 MG TABLET PO PRN (01:30)
[2021-07-05] MEDS ORDERED: CEFTRIAXONE 1 G in IV D5W 50 ML IV SCH (02:00)
[2021-07-05] MEDS ORDERED: MORPHINE SULFATE INJ 2 MG/ML DISP.SYRIN IM/IV PRN (02:00)
[2021-07-05] MEDS ORDERED: CEFTRIAXONE 1 G VIAL ONE (02:04)
[2021-07-05] MEDS: ALBUTEROL FS 2.5 MG/0.5 ML VIAL.NEB NEB SCH ×2 (04:11→08:03)
[2021-07-05] MEDS ORDERED: MORPHINE SULFATE INJ 2 MG/ML DISP.SYRIN IVP PRN (04:30)
[2021-07-05 05:00] VITALS: BP 105/44
[2021-07-05] MEDS: methylPREDNISolone SOD SUCC 40 MG/ML VIAL IV SCH ×2 (05:10→12:40)
[2021-07-05] MEDS ORDERED: PANTOPRAZOLE 40 MG VIAL IV SCH (07:30)
[2021-07-05] MEDS ORDERED: ATOR40TA PO (08:53)
[2021-07-05] MEDS ORDERED: NIFE60TA73 PO (08:53)
[2021-07-05] MEDS ORDERED: Medication Not On Formulary EA (Clonidine HCl (Clonidine HCl ER) 0.1 MG) PO SCH (10:00)
[2021-07-05] MEDS ORDERED: AMOX-430 PO (12:37)
[2021-07-05] MEDS ORDERED: ALBU6.7H9 INH (12:37)
[2021-07-05] MEDS ORDERED: PROM118S5 PO (12:37)
[2021-07-05] MEDS ORDERED: ALBU18HF2 INH (12:37)
[2021-07-05] MEDS ORDERED: METH4TAB17 PO (12:37)
[2021-07-05] MEDS ORDERED: IPRATROPIUM NEB FS 0.5 MG/2.5 ML AMPUL.NEB NEB SCH (13:30)
[2021-07-05] MEDS ORDERED: BENAZEPRIL HCL 20 MG TABLET PO SCH (17:00)
[2021-07-05] MEDS ORDERED: CARVEDILOL 12.5 MG TABLET PO SCH (17:00)
[2021-07-05] MEDS ORDERED: ATORVASTATIN 40 MG TABLET PO SCH (22:00)
[2021-07-06] MEDS ORDERED: PANTOPRAZOLE 40 MG TABLET.DR PO SCH (07:30)
[2021-07-06] MEDS ORDERED: EZETIMIBE 10 MG TABLET PO SCH (09:00)
[2021-07-06] MEDS ORDERED: NIFEdipine XL (30MG) 30 MG TAB PO SCH (09:00)
[2021-07-06] MEDS ORDERED: ASPIRIN EC 81 MG TABLET.DR PO SCH (09:00)
== END 2021-07-05 13:00 | disposition home or self-care (01) | DRG 191 ==
LOC: ER 21:56 → TELE1 07-05 00:37
PROVIDERS: ADMIT Legal Medicine; ATTEND Legal Medicine
DX: J44.0 Chronic obstructive pulmonary disease with (acute) lower respiratory infection (principal); J98.11 Atelectasis; J20.9 Acute bronchitis, unspecified; J44.1 Chronic obstructive pulmonary disease with (acute) exacerbation; Z20.822 Contact with and (suspected) exposure to COVID-19; I25.10 Atherosclerotic heart disease of native coronary artery without angina pectoris; Z98.61 Coronary angioplasty status; I10 Essential (primary) hypertension; Z79.899 Other long term (current) drug therapy; Z79.82 Long term (current) use of aspirin; F17.210 Nicotine dependence, cigarettes, uncomplicated; Z91.81 History of falling; E78.5 Hyperlipidemia, unspecified; R09.02 Hypoxemia; K21.9 Gastro-esophageal reflux disease without esophagitis; M19.90 Unspecified osteoarthritis, unspecified site; G89.29 Other chronic pain
CPT/HCPCS: 36415; 71045-TC; 80048-TC; 80076-TC; 83605-TC; 83735-TC; 83880; 84484-TC; 85025-TC; 85730-TC; 87040-TC; 87081-TC; 93970-TC; 94799-TC; C9113; C9803; G0378; J0696; J1650; J2920; J7050; J7060

== ENCOUNTER 2021-08-13 08:42 | Outpatient (CLI) | payer BC ==
[~2021-08-13 08:42] MED LIST changes: +ALBU18HF2 INH; +ALBU6.7H9 INH; +AMOX-430 PO; +ATOR40TA PO; +METH4TAB17 PO; +NIFE60TA73 PO; +PROM118S5 PO; -TRAZ-182 PO
== END 2021-08-13 23:59 | disposition home or self-care (01) ==
LOC: MSC 08:42
PROVIDERS: ATTEND Anesthesiology
DX: M46.96 Unspecified inflammatory spondylopathy, lumbar region (principal); M51.26 Other intervertebral disc displacement, lumbar region; M47.26 Other spondylosis with radiculopathy, lumbar region; M47.812 Spondylosis without myelopathy or radiculopathy, cervical region; F11.20 Opioid dependence, uncomplicated; M79.2 Neuralgia and neuritis, unspecified; R51.9 Headache, unspecified; F17.200 Nicotine dependence, unspecified, uncomplicated

== ENCOUNTER 2021-09-03 08:40 | Outpatient (CLI) | payer BC | END 2021-09-03 23:59 | disposition home or self-care (01) | LOC: MSC 08:40 | PROVIDERS: ATTEND Anesthesiology | DX: M25.571 Pain in right ankle and joints of right foot (principal); M25.572 Pain in left ankle and joints of left foot; W11.XXXA Fall on and from ladder, initial encounter; M46.96 Unspecified inflammatory spondylopathy, lumbar region; M51.26 Other intervertebral disc displacement, lumbar region; M47.26 Other spondylosis with radiculopathy, lumbar region; M47.812 Spondylosis without myelopathy or radiculopathy, cervical region; F11.20 Opioid dependence, uncomplicated; R51.9 Headache, unspecified; M79.2 Neuralgia and neuritis, unspecified ==

== ENCOUNTER 2021-10-04 10:02 | Outpatient (CLI) | payer BC | END 2021-10-04 23:59 | disposition home or self-care (01) | LOC: MRI 10:02 | PROVIDERS: ATTEND Anesthesiology | DX: M25.872 Other specified joint disorders, left ankle and foot (principal); R60.9 Edema, unspecified; Z96.698 Presence of other orthopedic joint implants; M25.572 Pain in left ankle and joints of left foot | CPT/HCPCS: 73718-TC; 73721-TC ==

== ENCOUNTER 2021-10-08 08:35 | Outpatient (CLI) | payer BC | END 2021-10-08 23:59 | disposition home or self-care (01) | LOC: MSC 08:35 | PROVIDERS: ATTEND Anesthesiology | DX: M25.571 Pain in right ankle and joints of right foot (principal); M25.572 Pain in left ankle and joints of left foot; M51.26 Other intervertebral disc displacement, lumbar region; M47.26 Other spondylosis with radiculopathy, lumbar region; M46.96 Unspecified inflammatory spondylopathy, lumbar region; M47.812 Spondylosis without myelopathy or radiculopathy, cervical region; R51.9 Headache, unspecified; F11.20 Opioid dependence, uncomplicated; F17.200 Nicotine dependence, unspecified, uncomplicated ==

== ENCOUNTER 2021-10-24 09:18 | Outpatient (CLI) | payer BC | END 2021-10-24 23:59 | disposition home or self-care (01) | LOC: WOU 09:18 | PROVIDERS: ATTEND Podiatrist Foot & Ankle Surgery | DX: G57.52 Tarsal tunnel syndrome, left lower limb (principal); R26.2 Difficulty in walking, not elsewhere classified; M79.672 Pain in left foot; I25.10 Atherosclerotic heart disease of native coronary artery without angina pectoris; I10 Essential (primary) hypertension; F17.200 Nicotine dependence, unspecified, uncomplicated; Z95.5 Presence of coronary angioplasty implant and graft | CPT/HCPCS: G0463 ==

== ENCOUNTER 2021-11-05 08:34 | Outpatient (CLI) | payer BC | END 2021-11-05 23:59 | disposition home or self-care (01) | LOC: MSC 08:34 | PROVIDERS: ATTEND Anesthesiology | DX: M46.96 Unspecified inflammatory spondylopathy, lumbar region (principal); M51.26 Other intervertebral disc displacement, lumbar region; M47.26 Other spondylosis with radiculopathy, lumbar region; M25.571 Pain in right ankle and joints of right foot; M25.572 Pain in left ankle and joints of left foot; M47.812 Spondylosis without myelopathy or radiculopathy, cervical region; R51.9 Headache, unspecified; F11.20 Opioid dependence, uncomplicated ==

== ENCOUNTER 2021-12-10 11:15 | Outpatient (CLI) | payer BC | END 2021-12-10 23:59 | disposition home or self-care (01) | LOC: MSC 11:15 | PROVIDERS: ATTEND Anesthesiology | DX: M46.96 Unspecified inflammatory spondylopathy, lumbar region (principal); M47.26 Other spondylosis with radiculopathy, lumbar region; M51.26 Other intervertebral disc displacement, lumbar region; M47.812 Spondylosis without myelopathy or radiculopathy, cervical region; F11.20 Opioid dependence, uncomplicated; M79.2 Neuralgia and neuritis, unspecified; R51.9 Headache, unspecified; M25.571 Pain in right ankle and joints of right foot; M25.572 Pain in left ankle and joints of left foot ==

== ENCOUNTER 2022-01-14 08:48 | Outpatient (CLI) | payer BC | END 2022-01-14 23:59 | disposition home or self-care (01) | LOC: MSC 08:48 | PROVIDERS: ATTEND Anesthesiology | DX: M47.26 Other spondylosis with radiculopathy, lumbar region (principal); M46.96 Unspecified inflammatory spondylopathy, lumbar region; M51.26 Other intervertebral disc displacement, lumbar region; M47.812 Spondylosis without myelopathy or radiculopathy, cervical region; F11.20 Opioid dependence, uncomplicated; M79.2 Neuralgia and neuritis, unspecified; R51.9 Headache, unspecified; M25.571 Pain in right ankle and joints of right foot; M25.572 Pain in left ankle and joints of left foot ==

== ENCOUNTER 2022-02-05 11:22 | Outpatient (CLI) | payer BC ==
[2022-02-05 12:00] LABS: BASOPHILS % (AUTO) 0.7 % (0.0-2.0); BILIRUBIN,URINE NEGATIVE (NEGATIVE); COLOR,URINE YELLOW (YELLOW); EOSINOPHILS % (AUTO) 3.8 % (0.0-6.0); HEMATOCRIT 44 % (39-51); HEMOGLOBIN 14.8 g/dL (13.5-17.5); LEUKOCYTE ESTERASE ,URINE NEGATIVE (NEGATIVE); LYMPHOCYTES # (AUTO) 2.4 K/uL (0.8-4.8); LYMPHOCYTES % (AUTO) 35.5 % (20.0-44.0); MEAN CORPUSCULAR HGB CONC 34 g/dl (31.0-36.0); MEAN CORPUSCULAR VOLUME 93 fL (80-96); MONOCYTES # (AUTO) 0.5 K/uL (0.1-1.30); MONOCYTES % (AUTO) 6.8 % (2.0-12.0); NEUTROPHILS # (AUTO) 3.5 K/uL (1.8-8.9); NEUTROPHILS % (AUTO) 53.2 % (43.0-81.0); NITRITE, URINE NEGATIVE (NEGATIVE); PLATELET COUNT (AUTO) 157 K/uL (150-450); PROTEIN,URINE NEGATIVE (NEGATIVE); RED BLOOD CELL COUNT(AUTO) 4.69 MIL/uL (4.5-6.0); UGLUCOSE NEGATIVE (NEGATIVE); UROBILINOGEN,URINE 0.2 EU/dL (0.2); WHITE BLOOD COUNT (AUTO) 6.7 K/uL (4.3-11.0)
[2022-02-05 12:31] LABS: PROSTATE SPECIFIC ANTIGEN SCR 1.33 ng/mL (0.00-4.00); THYROID STIMULATING HORMONE 1.114 uIU/mL (0.358-3.74); URIC ACID 4.8 mg/dL (2.6-7.2)
[2022-02-05 12:41] LABS: ALBUMIN 3.7 g/dL (3.4-5.0); BILIRUBIN,TOTAL 0.6 mg/dL (0.2-1.0); CALCIUM, SERUM 8.2 mg/dL (8.5-10.1); CREATININE 0.8 mg/dL (0.6-1.3); POTASSIUM 4.2 mmol/L (3.5-5.1); TOTAL PROTEIN, SERUM 6.9 g/dL (6.4-8.2)
== END 2022-02-05 23:59 | disposition home or self-care (01) ==
LOC: LAB 11:22
PROVIDERS: ATTEND Legal Medicine
DX: Z00.00 Encounter for general adult medical examination without abnormal findings (principal); D64.9 Anemia, unspecified; E55.9 Vitamin D deficiency, unspecified; E11.9 Type 2 diabetes mellitus without complications; N40.0 Benign prostatic hyperplasia without lower urinary tract symptoms; E78.00 Pure hypercholesterolemia, unspecified
CPT/HCPCS: 36415; 80053-TC; 80061-TC; 82306; 82607-TC; 82728-TC; 83540-TC; 84153-TC; 84402; 84403; 84443-TC; 84550-TC; 85025-TC

== ENCOUNTER 2022-02-09 11:59 | Emergency (ER) | payer BC ==
[~2022-02-09] VITALS: Ht 185.4 cm; Wt 93.0 kg
[2022-02-09] MEDS ORDERED: HYDR-3980 MT (12:09)
[2022-02-09] MEDS ORDERED: CARV6.252 PO (12:09)
--- NOTE | 2022-02-09 12:17 | NUR ---
C/O CONGESTION AND COUGH X 2 WEEKS. AFEBRILE UPON ARRIVAL 98.1. AMBULATORY, PLACED ON BED, BREATHING EVEN AND UNLABORED.
--- NOTE | 2022-02-09 12:18 | NUR ---
DR IRVING AT BEDSIDE FOR EVAL.
[2022-02-09] MEDS ORDERED: predniSONE 20 MG TABLET ONE (12:29)
[2022-02-09] MEDS ORDERED: predniSONE 20 MG TABLET PO ONE (12:30)
[2022-02-09] MEDS ORDERED: IPRATROPIUM NEB FS 0.5 MG/2.5 ML AMPUL.NEB NEB ONE (12:30)
[2022-02-09] MEDS ORDERED: ALBUTEROL FS 2.5 MG/3 ML VIAL.NEB NEB ONE (12:30)
--- NOTE | 2022-02-09 12:35 | NUR ---
SWAB FOR COVID19 AND RAPID INFLUENZA SENT TO LAB
[2022-02-09] MEDS ORDERED: LEVO750T46 PO (14:37)
[2022-02-09] MEDS ORDERED: BENZ-13 PO (14:38)
[2022-02-09] MEDS ORDERED: GUAI1TBM19 PO (14:38)
--- NOTE | 2022-02-09 14:40 | NUR ---
Patient discharged to home in stable condition. Written and verbal after care instructions given. Patient verbalizes understanding of instruction.
[2022-02-09 17:19] VITALS: BP 110/70
== END 2022-02-09 14:40 | disposition home or self-care (01) ==
LOC: ER 12:04
DX: J11.08 Influenza due to unidentified influenza virus with specified pneumonia (principal); J15.9 Unspecified bacterial pneumonia; R53.1 Weakness; Z20.822 Contact with and (suspected) exposure to COVID-19; F17.210 Nicotine dependence, cigarettes, uncomplicated; I10 Essential (primary) hypertension; Z95.5 Presence of coronary angioplasty implant and graft; Z79.899 Other long term (current) drug therapy
CPT/HCPCS: 99284; 71045; 87426; 87804; 94640; J7512; C9803

== ENCOUNTER 2022-02-13 09:46 | Emergency (ER) | payer BC ==
[~2022-02-13] VITALS: Ht 182.9 cm; Wt 90.7 kg
[~2022-02-13 09:46] MED LIST changes: -ALBU18HF2 INH; -ALBU6.7H9 INH; -AMOX-430 PO; -ASPI-605 PO; +BENZ-13 PO; -CARV12.52 PO; +CARV6.252 PO; -CLON-418 PO; -EZET10TA16 PO; +GUAI1TBM19 PO; +HYDR-3980 MT; +LEVO750T46 PO; -METH4TAB17 PO; -PROM118S5 PO
[2022-02-13] MEDS ORDERED: ALBU6.7H9 INH (11:25)
[2022-02-13] MEDS ORDERED: TRIA0.2585 PO (11:25)
[2022-02-13] MEDS ORDERED: EZET10TA32 PO (11:25)
--- NOTE | 2022-02-13 11:42 | NUR ---
PAGED EPIC ARCHITECTURAL DRAFTSPERSON
--- NOTE | 2022-02-13 11:43 | NUR ---
EPIC SUPERVISOR OFFSET PLATE PREPARATION AND ER MD TALKING ON PHONE
--- NOTE | 2022-02-13 11:46 | NUR ---
COVID SWAB COLLECTED AND SENT TO LAB
[2022-02-13 11:58] LABS: BASOPHILS # (AUTO) 0.1 K/uL (0.0-0.2); BASOPHILS % (AUTO) 0.7 % (0.0-2.0); EOSINOPHILS % (AUTO) 3.4 % (0.0-6.0); HEMATOCRIT 44 % (39-51); HEMOGLOBIN 14.8 g/dL (13.5-17.5); LYMPHOCYTES # (AUTO) 1.9 K/uL (0.8-4.8); LYMPHOCYTES % (AUTO) 21.3 % (20.0-44.0); MEAN CORPUSCULAR HGB CONC 34 g/dl (31.0-36.0); MEAN CORPUSCULAR VOLUME 94 fL (80-96); MONOCYTES # (AUTO) 0.5 K/uL (0.1-1.30); MONOCYTES % (AUTO) 5.9 % (2.0-12.0); NEUTROPHILS # (AUTO) 6.3 K/uL (1.8-8.9); NEUTROPHILS % (AUTO) 68.7 % (43.0-81.0); PLATELET COUNT (AUTO) 165 K/uL (150-450); RED BLOOD CELL COUNT(AUTO) 4.69 MIL/uL (4.5-6.0); WHITE BLOOD COUNT (AUTO) 9.1 K/uL (4.3-11.0)
--- NOTE | 2022-02-13 12:00 | NUR ---
Reclining in bed NO acute changes. NO distress.
[2022-02-13 12:16] LABS: ALANINE AMINOTRANSFERASE 29 U/L (12-78); ALBUMIN 3.7 g/dL (3.4-5.0); ALKALINE PHOSPHATASE 90 U/L (46-116); ASPARTATE AMINOTRANSFERASE 23 U/L (15-37); BILIRUBIN,DIRECT 0.2 mg/dL (0.0-0.2); BILIRUBIN,TOTAL 0.8 mg/dL (0.2-1.0); CALCIUM, SERUM 8.4 mg/dL (8.5-10.1); CARBON DIOXIDE 27 mmol/L (21-32); CHLORIDE 100 mmol/L (98-107); CREATININE 0.8 mg/dL (0.6-1.3); GLUCOSE 113 mg/dL (74-106); POTASSIUM 3.8 mmol/L (3.5-5.1); SODIUM SERUM 132 mmol/L (136-145); TOTAL PROTEIN, SERUM 6.5 g/dL (6.4-8.2); UREA NITROGEN, BLOOD 19 mg/dL (7-18)
[2022-02-13] MEDS ORDERED: LEVOFLOXACIN 500 MG /D5W 100ML 500 MG in PREMIX 1 EA IV SCH (13:00)
[2022-02-13] MEDS ORDERED: LEVO500T90 PO (13:19)
[2022-02-13] MEDS ORDERED: LEVOFLOXACIN 500 MG /D5W 100ML 100 ML IV ONE (13:20)
[2022-02-13 14:04] VITALS: BP 161/90
--- NOTE | 2022-02-13 14:05 | NUR ---
Patient discharged to home in stable condition. Written and verbal after care instructions given. Patient verbalizes understanding of instruction.
== END 2022-02-13 14:04 | disposition home or self-care (01) ==
LOC: ER 10:41
DX: J18.9 Pneumonia, unspecified organism (principal); Z20.822 Contact with and (suspected) exposure to COVID-19; R53.1 Weakness; Z95.5 Presence of coronary angioplasty implant and graft; I10 Essential (primary) hypertension; Z79.899 Other long term (current) drug therapy
CPT/HCPCS: 99285; 96365; 71045; 87426; 93005; 84145; 85025; 80048; 83605; 80076; 36415; 84484; 85730; 87081; 87040 ×2; J1956; C9803; A4216

== ENCOUNTER 2022-02-18 08:50 | Outpatient (CLI) | payer BC ==
[~2022-02-18 08:50] MED LIST changes: +ALBU6.7H9 INH; -BENZ-13 PO; +EZET10TA32 PO; -GUAI1TBM19 PO; +LEVO500T90 PO; +TRIA0.2585 PO
== END 2022-02-18 23:59 | disposition home or self-care (01) ==
LOC: MSC 08:50
PROVIDERS: ATTEND Anesthesiology
DX: M46.96 Unspecified inflammatory spondylopathy, lumbar region (principal); M51.26 Other intervertebral disc displacement, lumbar region; M47.26 Other spondylosis with radiculopathy, lumbar region; M47.812 Spondylosis without myelopathy or radiculopathy, cervical region; F11.20 Opioid dependence, uncomplicated; M79.2 Neuralgia and neuritis, unspecified; M25.571 Pain in right ankle and joints of right foot; M25.572 Pain in left ankle and joints of left foot; R51.9 Headache, unspecified

== ENCOUNTER 2022-03-10 09:06 | Outpatient (CLI) | payer BC | END 2022-03-10 23:59 | disposition home or self-care (01) | LOC: WOU 09:06 | PROVIDERS: ATTEND Podiatrist Foot & Ankle Surgery | DX: G57.62 Lesion of plantar nerve, left lower limb (principal); M20.21 Hallux rigidus, right foot; L60.0 Ingrowing nail; R26.2 Difficulty in walking, not elsewhere classified; M79.672 Pain in left foot; M79.671 Pain in right foot | CPT/HCPCS: 73630-TC; G0463 ==

== ENCOUNTER 2022-03-18 08:30 | Outpatient (CLI) | payer BC | END 2022-03-18 23:59 | disposition home or self-care (01) | LOC: MSC 08:30 | PROVIDERS: ATTEND Anesthesiology | DX: M47.26 Other spondylosis with radiculopathy, lumbar region (principal); M46.96 Unspecified inflammatory spondylopathy, lumbar region; M51.26 Other intervertebral disc displacement, lumbar region; M47.812 Spondylosis without myelopathy or radiculopathy, cervical region; F11.20 Opioid dependence, uncomplicated; M79.2 Neuralgia and neuritis, unspecified; M25.571 Pain in right ankle and joints of right foot; M25.572 Pain in left ankle and joints of left foot; R51.9 Headache, unspecified ==

== ENCOUNTER 2022-03-20 09:00 | Outpatient (CLI) | payer BC ==
[2022-03-20] MEDS ORDERED: LIDOCAINE 2% 20 ML MDV ONE (09:16)
[2022-03-20] MEDS ORDERED: LIDOCAINE 1% INJ 50 ML MDV IJ ONE (09:30)
[2022-03-20] MEDS ORDERED: DEXAMETHASONE 4 MG TABLET PO ONE (09:30)
[2022-03-20] MEDS ORDERED: TRIAMCINOLONE ACETONIDE SUSP 40 MG/ML 1 ML IM ONE (09:30)
[2022-03-20] MEDS ORDERED: DEXAMETHASONE SOD PHOSPHATE 4 MG/ML VIAL IV ONE (10:00)
[2022-03-20] MEDS ORDERED: ETHYL CHLORIDE SPRAY 1 EA BOTTLE TP ONE (10:30)
== END 2022-03-20 23:59 | disposition home or self-care (01) ==
LOC: WOU 09:00
PROVIDERS: ATTEND Podiatrist Foot & Ankle Surgery
DX: G57.62 Lesion of plantar nerve, left lower limb (principal); L60.0 Ingrowing nail; R26.2 Difficulty in walking, not elsewhere classified; M79.672 Pain in left foot; M20.21 Hallux rigidus, right foot
CPT/HCPCS: 11750; 64455; J1100; J3490 ×2; J8540

== ENCOUNTER 2022-04-22 09:05 | Outpatient (CLI) | payer BC | END 2022-04-22 23:59 | disposition home or self-care (01) | LOC: MSC 09:05 | PROVIDERS: ATTEND Anesthesiology | DX: M46.96 Unspecified inflammatory spondylopathy, lumbar region (principal); M51.26 Other intervertebral disc displacement, lumbar region; M47.26 Other spondylosis with radiculopathy, lumbar region; M47.812 Spondylosis without myelopathy or radiculopathy, cervical region; F11.20 Opioid dependence, uncomplicated; M79.2 Neuralgia and neuritis, unspecified; M25.571 Pain in right ankle and joints of right foot; M25.572 Pain in left ankle and joints of left foot; R51.9 Headache, unspecified ==

== ENCOUNTER 2022-05-02 08:14 | Outpatient (CLI) | payer BC ==
[2022-05-02 08:57] LABS: BASOPHILS % (AUTO) 0.6 % (0.0-2.0); EOSINOPHILS % (AUTO) 8.1 % (0.0-6.0); HEMATOCRIT 47 % (39-51); HEMOGLOBIN 15.6 g/dL (13.5-17.5); LYMPHOCYTES % (AUTO) 31.1 % (20.0-44.0); MEAN CORPUSCULAR HGB CONC 33 g/dl (31.0-36.0); MEAN CORPUSCULAR VOLUME 95 fL (80-96); MONOCYTES # (AUTO) 0.5 K/uL (0.1-1.30); MONOCYTES % (AUTO) 7.9 % (2.0-12.0); NEUTROPHILS # (AUTO) 3.3 K/uL (1.8-8.9); NEUTROPHILS % (AUTO) 52.3 % (43.0-81.0); PLATELET COUNT (AUTO) 149 K/uL (150-450); RED BLOOD CELL COUNT(AUTO) 4.92 MIL/uL (4.5-6.0); WHITE BLOOD COUNT (AUTO) 6.3 K/uL (4.3-11.0)
[2022-05-02 09:14] LABS: BILIRUBIN,URINE NEGATIVE (NEGATIVE); COLOR,URINE YELLOW (YELLOW); LEUKOCYTE ESTERASE ,URINE NEGATIVE (NEGATIVE); NITRITE, URINE NEGATIVE (NEGATIVE); PROTEIN,URINE NEGATIVE (NEGATIVE); UGLUCOSE NEGATIVE (NEGATIVE); UROBILINOGEN,URINE 0.2 EU/dL (0.2)
[2022-05-02 09:33] LABS: IRON, SERUM 92 ug/dl (50-175); TOTAL IRON BINDING CAPACITY 329 ug/dl (250-450)
[2022-05-02 09:53] LABS: CHOLESTEROL 184 mg/dL (<200); CREATINE KINASE, TOTAL 154 U/L (39-308); FERRITIN 217 ng/mL (8-388); HDL CHOLESTEROL 57 mg/dL (40-60); LDL 97 mg/dL (0-99); PROSTATE SPECIFIC ANTIGEN SCR 0.69 ng/mL (0.00-4.00); TRIGLYCERIDES 170 mg/dL (30-150)
[2022-05-02 09:59] LABS: ALANINE AMINOTRANSFERASE 32 U/L (12-78); ALBUMIN 4.1 g/dL (3.4-5.0); ALKALINE PHOSPHATASE 104 U/L (46-116); ASPARTATE AMINOTRANSFERASE 27 U/L (15-37); BILIRUBIN,TOTAL 0.6 mg/dL (0.2-1.0); CALCIUM, SERUM 8.8 mg/dL (8.5-10.1); CARBON DIOXIDE 26 mmol/L (21-32); CHLORIDE 106 mmol/L (98-107); CREATININE 0.7 mg/dL (0.6-1.3); GLUCOSE 144 mg/dL (74-106); POTASSIUM 4.6 mmol/L (3.5-5.1); SODIUM SERUM 140 mmol/L (136-145); TOTAL PROTEIN, SERUM 7.4 g/dL (6.4-8.2); UREA NITROGEN, BLOOD 12 mg/dL (7-18)
[2022-05-02 10:00] LABS: C-REACTIVE PROTEIN < 0.2 mg/dL (0.0-0.9)
== END 2022-05-02 23:59 | disposition home or self-care (01) ==
LOC: LAB 08:14
PROVIDERS: ATTEND Legal Medicine
DX: Z00.00 Encounter for general adult medical examination without abnormal findings (principal); E29.1 Testicular hypofunction; E11.9 Type 2 diabetes mellitus without complications; N40.0 Benign prostatic hyperplasia without lower urinary tract symptoms; M47.814 Spondylosis without myelopathy or radiculopathy, thoracic region; I25.10 Atherosclerotic heart disease of native coronary artery without angina pectoris
CPT/HCPCS: 36415; 71250-TC; 80053-TC; 80061-TC; 82306; 82550-TC; 82607-TC; 82728-TC; 83540-TC; 84153-TC; 84402; 84403; 84439-TC; 84443-TC; 85025-TC; 85652-TC; 86140-TC

== ENCOUNTER 2022-05-13 13:31 | Outpatient (CLI) | payer BC | END 2022-05-13 23:59 | disposition home or self-care (01) | LOC: MSC 13:31 | PROVIDERS: ATTEND Anesthesiology | DX: M46.96 Unspecified inflammatory spondylopathy, lumbar region (principal); M51.26 Other intervertebral disc displacement, lumbar region; M47.26 Other spondylosis with radiculopathy, lumbar region; M47.812 Spondylosis without myelopathy or radiculopathy, cervical region; F11.20 Opioid dependence, uncomplicated; M79.2 Neuralgia and neuritis, unspecified; M25.571 Pain in right ankle and joints of right foot; M25.572 Pain in left ankle and joints of left foot; R51.9 Headache, unspecified ==

== ENCOUNTER 2022-06-10 09:47 | Outpatient (CLI) | payer BC | END 2022-06-10 23:59 | disposition home or self-care (01) | LOC: MSC 09:47 | PROVIDERS: ATTEND Anesthesiology | DX: M46.96 Unspecified inflammatory spondylopathy, lumbar region (principal); M51.26 Other intervertebral disc displacement, lumbar region; M47.26 Other spondylosis with radiculopathy, lumbar region; M47.812 Spondylosis without myelopathy or radiculopathy, cervical region; F11.20 Opioid dependence, uncomplicated; M79.2 Neuralgia and neuritis, unspecified; M25.571 Pain in right ankle and joints of right foot; M25.572 Pain in left ankle and joints of left foot; R51.9 Headache, unspecified ==

== ENCOUNTER 2022-07-22 09:39 | Outpatient (CLI) | payer BC | END 2022-07-22 23:59 | disposition home or self-care (01) | LOC: MSC 09:39 | PROVIDERS: ATTEND Anesthesiology | DX: M46.96 Unspecified inflammatory spondylopathy, lumbar region (principal); M51.26 Other intervertebral disc displacement, lumbar region; M47.26 Other spondylosis with radiculopathy, lumbar region; M47.812 Spondylosis without myelopathy or radiculopathy, cervical region; F11.20 Opioid dependence, uncomplicated; M79.2 Neuralgia and neuritis, unspecified; R51.9 Headache, unspecified; M25.571 Pain in right ankle and joints of right foot; M25.572 Pain in left ankle and joints of left foot ==

== ENCOUNTER 2022-10-14 11:41 | Outpatient (CLI) | payer BC | END 2022-10-14 23:59 | disposition home or self-care (01) | LOC: MSC 11:41 | PROVIDERS: ATTEND Anesthesiology | DX: M46.96 Unspecified inflammatory spondylopathy, lumbar region (principal); M51.26 Other intervertebral disc displacement, lumbar region; M47.26 Other spondylosis with radiculopathy, lumbar region; M47.812 Spondylosis without myelopathy or radiculopathy, cervical region; F11.20 Opioid dependence, uncomplicated; R51.9 Headache, unspecified; M25.571 Pain in right ankle and joints of right foot; M25.572 Pain in left ankle and joints of left foot ==

== ENCOUNTER 2023-04-14 19:19 | Inpatient (IN) | payer BC ==
[~2023-04-14] VITALS: Ht 185.4 cm; Wt 100.7 kg
[2023-04-14 21:55] VITALS: BP 121/85; TEMP 98.6
[2023-04-14] MEDS ORDERED: MAG HYDROX/AL HYDROX/SIMETH 30 ML UDC PO PRN (23:30)
[2023-04-14] MEDS ORDERED: ONDANSETRON HCL/PF 4 MG/2 ML VIAL IVP PRN (23:30)
[2023-04-14] MEDS ORDERED: MAGNESIUM HYDROXIDE 30 ML UDC PO PRN (23:30)
[2023-04-14] MEDS ORDERED: ZOLPIDEM TARTRATE 5 MG TABLET PO PRN (23:30)
[2023-04-14] MEDS ORDERED: Z GUARD REMEDY 4 OZ OINT TP PRN (23:30)
[2023-04-14] MEDS ORDERED: HYDROCODONE/APAP 5/325MG TABLET PO PRN (23:30)
[2023-04-14] MEDS ORDERED: ACETAMINOPHEN 325 MG TABLET PO PRN (23:30)
[2023-04-15 04:00] VITALS: BP 132/80; TEMP 98.1
[2023-04-15] MEDS: IV 1/2NS 1000 ML 1,000 ML IV PRN (04:50)
[2023-04-15 07:20] LABS: BASOPHILS % (AUTO) 0.5 % (0.0-2.0); EOSINOPHILS # (AUTO) 0.3 K/uL (0.0-0.7); EOSINOPHILS % (AUTO) 5.5 % (0.0-6.0); HEMATOCRIT 40 % (39-51); HEMOGLOBIN 13.5 g/dL (13.5-17.5); LYMPHOCYTES # (AUTO) 1.8 K/uL (0.8-4.8); LYMPHOCYTES % (AUTO) 29.8 % (20.0-44.0); MEAN CORPUSCULAR HEMOGLOBIN 32 PG (26.0-33.0); MEAN CORPUSCULAR HGB CONC 34 g/dl (31.0-36.0); MEAN CORPUSCULAR VOLUME 96 fL (80-96); MONOCYTES # (AUTO) 0.7 K/uL (0.1-1.30); MONOCYTES % (AUTO) 10.8 % (2.0-12.0); NEUTROPHILS # (AUTO) 3.3 K/uL (1.8-8.9); NEUTROPHILS % (AUTO) 53.4 % (43.0-81.0); PLATELET COUNT (AUTO) 112 K/uL (150-450); RED BLOOD CELL COUNT(AUTO) 4.19 MIL/uL (4.5-6.0); RED CELL DISTRIBUTION WIDTH 13.6 % (11.5-15.0); WHITE BLOOD COUNT (AUTO) 6.1 K/uL (4.3-11.0)
[2023-04-15 08:09] LABS: CALCIUM, SERUM 8.9 mg/dL (8.5-10.1); CREATININE 0.7 mg/dL (0.6-1.3); MAGNESIUM 2.3 mg/dL (1.8-2.4)
[2023-04-15] MEDS: PANTOPRAZOLE 40 MG TABLET.DR PO SCH (08:19)
[2023-04-15] MEDS ORDERED: TRIAZOLAM PO PRN (09:30)
[2023-04-15] MEDS: ENOXAPARIN SODIUM 40 MG/0.4 ML DISP.SYRIN SQ SCH (11:00)
[2023-04-15 12:00] VITALS: BP 130/72; TEMP 98.1
[2023-04-15 12:28] LABS: INR 0.97 (0.91-1.10); PROTHROMBIN TIME 10.3 SECS (9.2-11.1)
[2023-04-15] MEDS ORDERED: NIFE-35 PO (12:34)
[2023-04-15] MEDS ORDERED: ANESTHESIA TRAY IN PYXIS 1 EA TRAY MC ONE (14:45)
[2023-04-15] MEDS: CARVEDILOL 6.25 MG TABLET PO SCH (16:48)
[2023-04-15 16:49] VITALS: BP 125/87; TEMP 98.6; O2SAT 95
[2023-04-15] MEDS: BENAZEPRIL HCL 20 MG TABLET PO SCH (16:49)
[2023-04-15 20:00] VITALS: BP 123/86; TEMP 98
[2023-04-15] MEDS: ATORVASTATIN 40 MG TABLET PO SCH (21:23)
[2023-04-16 04:00] VITALS: BP 115/85; TEMP 98
[2023-04-16 08:20] LABS: CALCIUM, SERUM 9.2 mg/dL (8.5-10.1); CREATININE 0.8 mg/dL (0.6-1.3); POTASSIUM 4.4 mmol/L (3.5-5.1)
[2023-04-16 08:35] LABS: BASOPHILS % (AUTO) 0.5 % (0.0-2.0); EOSINOPHILS # (AUTO) 0.4 K/uL (0.0-0.7); EOSINOPHILS % (AUTO) 5.9 % (0.0-6.0); HEMATOCRIT 43 % (39-51); HEMOGLOBIN 14.4 g/dL (13.5-17.5); LYMPHOCYTES # (AUTO) 1.7 K/uL (0.8-4.8); LYMPHOCYTES % (AUTO) 26.4 % (20.0-44.0); MEAN CORPUSCULAR HEMOGLOBIN 32 PG (26.0-33.0); MEAN CORPUSCULAR HGB CONC 34 g/dl (31.0-36.0); MEAN CORPUSCULAR VOLUME 96 fL (80-96); MONOCYTES # (AUTO) 0.5 K/uL (0.1-1.30); MONOCYTES % (AUTO) 7.8 % (2.0-12.0); NEUTROPHILS # (AUTO) 3.8 K/uL (1.8-8.9); NEUTROPHILS % (AUTO) 59.4 % (43.0-81.0); PLATELET COUNT (AUTO) 116 K/uL (150-450); RED BLOOD CELL COUNT(AUTO) 4.46 MIL/uL (4.5-6.0); RED CELL DISTRIBUTION WIDTH 13.8 % (11.5-15.0); WHITE BLOOD COUNT (AUTO) 6.4 K/uL (4.3-11.0)
[2023-04-16] MEDS: NIFEdipine XL (30MG) 30 MG TAB PO SCH (09:00)
[2023-04-16] MEDS: EZETIMIBE 10 MG TABLET PO SCH (09:00)
[2023-04-16 12:00] VITALS: BP 103/81; TEMP 97.9
[2023-04-16 18:08] VITALS: BP 121/89
== END 2023-04-16 18:59 | disposition home or self-care (01) | DRG 392 ==
LOC: MEDSG1 21:48
PROVIDERS: ADMIT Internal Medicine; ATTEND Internal Medicine
PROC: 0DB68ZX Excision of Stomach, Via Natural or Artificial Opening Endoscopic, Diagnostic (ICD-10-PCS; principal; 2023-04-15)
DX: K29.70 Gastritis, unspecified, without bleeding (principal); I10 Essential (primary) hypertension; K21.9 Gastro-esophageal reflux disease without esophagitis; F41.9 Anxiety disorder, unspecified; E78.5 Hyperlipidemia, unspecified; F17.210 Nicotine dependence, cigarettes, uncomplicated; I25.10 Atherosclerotic heart disease of native coronary artery without angina pectoris; J44.9 Chronic obstructive pulmonary disease, unspecified
CPT/HCPCS: 36415; 78226; 80048-TC; 83735-TC; 84100-TC; 85025-TC; 85610-TC; 87081-TC; A4223; A9537; G0378; J2704; J3490; J7030

== ENCOUNTER 2023-09-25 10:01 | Outpatient (CLI) | payer BC ==
[~2023-09-25 10:01] MED LIST changes: -ALBU6.7H9 INH; -LEVO500T90 PO; -LEVO750T46 PO; +NIFE-35 PO
== END 2023-09-25 23:59 | disposition home or self-care (01) ==
LOC: MRI 10:01
PROVIDERS: ATTEND Podiatrist Foot & Ankle Surgery
DX: M19.071 Primary osteoarthritis, right ankle and foot (principal); M62.571 Muscle wasting and atrophy, not elsewhere classified, right ankle and foot; M25.571 Pain in right ankle and joints of right foot; M25.474 Effusion, right foot; M25.871 Other specified joint disorders, right ankle and foot
CPT/HCPCS: 73718-TC; 73721-TC

== ENCOUNTER 2023-10-20 10:31 | Outpatient (CLI) | payer BC | END 2023-10-20 23:59 | disposition home or self-care (01) | LOC: MSC 10:31 | PROVIDERS: ATTEND Anesthesiology | DX: M25.512 Pain in left shoulder (principal); M25.511 Pain in right shoulder; M46.96 Unspecified inflammatory spondylopathy, lumbar region; M51.26 Other intervertebral disc displacement, lumbar region; M47.26 Other spondylosis with radiculopathy, lumbar region; M47.812 Spondylosis without myelopathy or radiculopathy, cervical region; F11.20 Opioid dependence, uncomplicated; M79.2 Neuralgia and neuritis, unspecified; M25.571 Pain in right ankle and joints of right foot; M25.572 Pain in left ankle and joints of left foot; R51.9 Headache, unspecified ==

== ENCOUNTER 2023-10-24 21:47 | Emergency (ER) | payer BC ==
[~2023-10-24] VITALS: Ht 188 cm; Wt 106.6 kg
[2023-10-24] MEDS ORDERED: oxyCODONE/APAP (5/325 MG) 1 UDTAB TABLET ONE (22:02)
[2023-10-24] MEDS ORDERED: KETOROLAC TROMETHAMINE INJ 30 MG/ML VIAL ONE (22:02)
[2023-10-24] MEDS: oxyCODONE/APAP (5/325 MG) 1 UDTAB TABLET PO ONE (22:06)
[2023-10-24] MEDS: KETOROLAC TROMETHAMINE INJ 60 MG/2 ML VIAL IM ONE (22:06)
[2023-10-24 22:23] VITALS: BP 135/86; TEMP 98.9; O2SAT 99
== END 2023-10-24 22:23 | disposition home or self-care (01) ==
LOC: ER 22:07
DX: K08.89 Other specified disorders of teeth and supporting structures (principal); I10 Essential (primary) hypertension; F17.210 Nicotine dependence, cigarettes, uncomplicated; Z87.09 Personal history of other diseases of the respiratory system; Z95.5 Presence of coronary angioplasty implant and graft
CPT/HCPCS: 99283; 96372; J1885

== ENCOUNTER 2024-06-14 10:52 | Inpatient (IN) | payer BC ==
[~2024-06-14] VITALS: Ht 182.9 cm; Wt 99.8 kg
[2024-06-14] MEDS ORDERED: ONDANSETRON HCL/PF 4 MG/2 ML VIAL ONE (11:20)
[2024-06-14] MEDS ORDERED: ASPIRIN 81 MG TAB.CHEW ONE (11:21)
[2024-06-14] MEDS ORDERED: MORPHINE SULFATE INJ 4 MG/ML DISP.SYRIN ONE (11:21)
[2024-06-14 11:26] LABS: BASOPHILS # (AUTO) 0.1 K/uL (0.0-0.2); BASOPHILS % (AUTO) 0.9 % (0.0-2.0); EOSINOPHILS # (AUTO) 0.2 K/uL (0.0-0.7); EOSINOPHILS % (AUTO) 3.8 % (0.0-6.0); HEMATOCRIT 47 % (39-51); HEMOGLOBIN 16.7 g/dL (13.5-17.5); LYMPHOCYTES # (AUTO) 2.1 K/uL (0.8-4.8); LYMPHOCYTES % (AUTO) 38.1 % (20.0-44.0); MEAN CORPUSCULAR HEMOGLOBIN 34 PG (26.0-33.0); MEAN CORPUSCULAR HGB CONC 35 g/dl (31.0-36.0); MEAN CORPUSCULAR VOLUME 96 fL (80-96); MONOCYTES # (AUTO) 0.4 K/uL (0.1-1.30); MONOCYTES % (AUTO) 7.4 % (2.0-12.0); NEUTROPHILS # (AUTO) 2.8 K/uL (1.8-8.9); NEUTROPHILS % (AUTO) 49.8 % (43.0-81.0); PLATELET COUNT (AUTO) 152 K/uL (150-450); RED BLOOD CELL COUNT(AUTO) 4.93 MIL/uL (4.5-6.0); RED CELL DISTRIBUTION WIDTH 12.9 % (11.5-15.0); WHITE BLOOD COUNT (AUTO) 5.6 K/uL (4.3-11.0)
[2024-06-14] MEDS: ASPIRIN 81 MG TAB.CHEW PO ONE (11:28)
[2024-06-14] MEDS: ONDANSETRON HCL/PF 4 MG/2 ML VIAL IVP ONE (11:28)
[2024-06-14] MEDS: MORPHINE SULFATE INJ 2 MG/ML DISP.SYRIN IV ONE (11:29)
[2024-06-14 11:42] LABS: CALCIUM, SERUM 8.8 mg/dL (8.5-10.1); CARBON DIOXIDE 25 mmol/L (21-32); CHLORIDE 102 mmol/L (98-107); CREATININE 0.8 mg/dL (0.6-1.3); GLUCOSE 145 mg/dL (74-106); SODIUM SERUM 136 mmol/L (136-145); UREA NITROGEN, BLOOD 16 mg/dL (7-18)
[2024-06-14 13:00] VITALS: O2SAT 99
[2024-06-14 14:15] VITALS: BP 156/93; TEMP 97.4
[2024-06-14 16:06] VITALS: BP 145/88; TEMP 99; O2SAT 94
[2024-06-14] MEDS: ENOXAPARIN SODIUM 40 MG/0.4 ML DISP.SYRIN SQ SCH (18:00)
[2024-06-14] MEDS ORDERED: ONDANSETRON HCL/PF 4 MG/2 ML VIAL IVP PRN (18:00)
[2024-06-14] MEDS ORDERED: ACETAMINOPHEN 325 MG TABLET PO PRN (18:00)
[2024-06-14] MEDS ORDERED: IBUPROFEN 600 MG TABLET PO PRN (18:00)
[2024-06-14] MEDS ORDERED: Z GUARD REMEDY 4 OZ OINT TP PRN (18:00)
[2024-06-14] MEDS ORDERED: PANTOPRAZOLE 40 MG TABLET.DR PO SCH (18:00)
[2024-06-14] MEDS: KETOROLAC TROMETHAMINE 15 MG/ML VIAL IV ONE (18:13)
[2024-06-14] MEDS: LIDOCAINE 5% (PATCH) 1 EA PATCH TP SCH (18:28)
[2024-06-14] MEDS: PANTOPRAZOLE 40 MG TABLET.DR PO PRN (18:29)
[2024-06-14 20:00] VITALS: BP 131/84; TEMP 98.1; O2SAT 95
[2024-06-14] MEDS: HYDROMORPHONE 1 MG/1 ML DISP.SYRIN IV PRN (20:01)
[2024-06-15] VITALS: BP 135/88; TEMP 98.1; O2SAT 94
[2024-06-15 04:00] VITALS: BP 138/94; TEMP 98.1; O2SAT 94
[2024-06-15 07:13] LABS: BASOPHILS % (AUTO) 0.6 % (0.0-2.0); EOSINOPHILS # (AUTO) 0.3 K/uL (0.0-0.7); EOSINOPHILS % (AUTO) 4.3 % (0.0-6.0); HEMATOCRIT 45 % (39-51); HEMOGLOBIN 15.7 g/dL (13.5-17.5); LYMPHOCYTES # (AUTO) 2.2 K/uL (0.8-4.8); LYMPHOCYTES % (AUTO) 34.3 % (20.0-44.0); MEAN CORPUSCULAR HEMOGLOBIN 34 PG (26.0-33.0); MEAN CORPUSCULAR HGB CONC 35 g/dl (31.0-36.0); MEAN CORPUSCULAR VOLUME 97 fL (80-96); MONOCYTES # (AUTO) 0.5 K/uL (0.1-1.30); MONOCYTES % (AUTO) 7.8 % (2.0-12.0); NEUTROPHILS # (AUTO) 3.4 K/uL (1.8-8.9); PLATELET COUNT (AUTO) 128 K/uL (150-450); RED BLOOD CELL COUNT(AUTO) 4.61 MIL/uL (4.5-6.0); RED CELL DISTRIBUTION WIDTH 13.1 % (11.5-15.0); WHITE BLOOD COUNT (AUTO) 6.3 K/uL (4.3-11.0)
[2024-06-15 07:18] LABS: CALCIUM, SERUM 8.5 mg/dL (8.5-10.1); CREATININE 0.8 mg/dL (0.6-1.3); MAGNESIUM 1.9 mg/dL (1.8-2.4); PHOSPHORUS 3.3 mg/dL (2.5-4.9); POTASSIUM 3.1 mmol/L (3.5-5.1)
[2024-06-15 07:30] VITALS: BP 156/95; TEMP 98.1; O2SAT 93
[2024-06-15] MEDS: EZETIMIBE 10 MG TABLET PO SCH (08:54)
[2024-06-15] MEDS: CARVEDILOL 6.25 MG TABLET PO SCH (08:54)
[2024-06-15] MEDS: BENAZEPRIL HCL 20 MG TABLET PO SCH (08:54)
[2024-06-15] MEDS: NIFEdipine XL (30MG) 30 MG TAB PO SCH (08:55)
[2024-06-15] MEDS: POTASSIUM CHLORIDE 20 MEQ TAB.PRT.SR PO SCH (09:46)
[2024-06-15] MEDS: METOPROLOL TARTRATE 50 MG TABLET PO ONE (12:42)
[2024-06-15] MEDS: FENOFIBRATE NANOCRYS (145 MG) 145 MG TABLET PO SCH (12:44)
[2024-06-15] MEDS ORDERED: IOHEXOL-350 100 ML VIAL IV ONE (14:42)
[2024-06-15] MEDS ORDERED: IV NS 0.9% 250 ML IV ONE (14:42)
[2024-06-15] MEDS: METOPROLOL TARTRATE INJ 5 MG/5 ML AMPUL IVP PRN (14:55)
[2024-06-15] MEDS ORDERED: METOPROLOL TARTRATE INJ 5 MG/5 ML AMPUL ONE ×2 (14:57→15:05)
[2024-06-15] MEDS ORDERED: NITROGLYCERIN 0.4 MG/TAB BOTTLE ONE (14:58)
[2024-06-15] MEDS: NITROGLYCERIN 0.4 MG/TAB BOTTLE SL ONE (15:03)
[2024-06-15 16:37] VITALS: BP 139/92
[2024-06-15] MEDS ORDERED: IBUP-1953 PO (18:09)
[2024-06-15] MEDS ORDERED: LIDO30AD10 TP (18:09)
== END 2024-06-15 17:00 | disposition home or self-care (01) | DRG 596 ==
LOC: ER 11:02 → TELE 12:24 → MED 06-15 07:05
PROVIDERS: ADMIT Nurse Practitioner Acute Care; ATTEND Nurse Practitioner Acute Care
DX: B02.9 Zoster without complications (principal); M94.0 Chondrocostal junction syndrome [Tietze]; I10 Essential (primary) hypertension; E78.1 Pure hyperglyceridemia; E78.5 Hyperlipidemia, unspecified; Z95.5 Presence of coronary angioplasty implant and graft; Z79.899 Other long term (current) drug therapy; F17.210 Nicotine dependence, cigarettes, uncomplicated; J44.9 Chronic obstructive pulmonary disease, unspecified; K21.9 Gastro-esophageal reflux disease without esophagitis; Z71.6 Tobacco abuse counseling; I25.119 Atherosclerotic heart disease of native coronary artery with unspecified angina pectoris
CPT/HCPCS: 36415; 71045-TC; 75574; 80048-TC; 80061-TC; 83735-TC; 84100-TC; 84484-TC; 85025-TC; G0378; J1171; J1650; J1885; J2270; J2405; J3490; J7050; Q9967

== ENCOUNTER 2024-08-12 16:24 | Emergency (ER) | payer BC ==
[~2024-08-12] VITALS: Ht 182.9 cm; Wt 95.3 kg
[~2024-08-12 16:24] MED LIST changes: -ATOR40TA PO; +IBUP-1953 PO; +LIDO30AD10 TP; -NIFE60TA73 PO
[2024-08-12 17:47] LABS: BASOPHILS % (AUTO) 0.3 % (0.0-2.0); EOSINOPHILS # (AUTO) 0.1 K/uL (0.0-0.7); EOSINOPHILS % (AUTO) 0.8 % (0.0-6.0); HEMATOCRIT 42 % (39-51); HEMOGLOBIN 14.2 g/dL (13.5-17.5); LYMPHOCYTES # (AUTO) 1.8 K/uL (0.8-4.8); LYMPHOCYTES % (AUTO) 17.7 % (20.0-44.0); MEAN CORPUSCULAR HEMOGLOBIN 34 PG (26.0-33.0); MEAN CORPUSCULAR HGB CONC 34 g/dl (31.0-36.0); MEAN CORPUSCULAR VOLUME 98 fL (80-96); MONOCYTES # (AUTO) 0.8 K/uL (0.1-1.30); MONOCYTES % (AUTO) 8.2 % (2.0-12.0); NEUTROPHILS # (AUTO) 7.5 K/uL (1.8-8.9); PLATELET COUNT (AUTO) 126 K/uL (150-450); RED BLOOD CELL COUNT(AUTO) 4.24 MIL/uL (4.5-6.0); RED CELL DISTRIBUTION WIDTH 14.3 % (11.5-15.0); WHITE BLOOD COUNT (AUTO) 10.3 K/uL (4.3-11.0)
[2024-08-12 18:00] LABS: APPEARANCE,URINE CLEAR (CLEAR); BILIRUBIN,URINE 1+ (NEGATIVE); BLOOD, URINE 3+ Ery/uL (NEGATIVE); CALCIUM, SERUM 8.6 mg/dL (8.5-10.1); COLOR,URINE YELLOW (YELLOW); CREATININE 0.9 mg/dL (0.6-1.3); KETONES,URINE NEGATIVE (NEGATIVE); LEUKOCYTE ESTERASE ,URINE TRACE (NEGATIVE); NITRITE, URINE POSITIVE (NEGATIVE); POTASSIUM 3.8 mmol/L (3.5-5.1); PROTEIN,URINE 2+ mg/dl (NEGATIVE); UGLUCOSE NEGATIVE (NEGATIVE)
[2024-08-12 18:05] LABS: ADD URINE CULTURE YES; BACTERIA,URINE 1+ /HPF (None Seen); CALCIUM OXALATE CRYSTALS,UR Few /HPF (None Seen); SQUAMOUS EPITHELIAL CELL,UR Rare /HPF (None Seen)
[2024-08-12 18:06] LABS: HYALINE CASTS, URINE Few /LPF (None Seen); URINE AMORPHOUS PHOSPHATES Few /HPF (None Seen)
[2024-08-12] MEDS ORDERED: CEPH-570 PO (18:06)
[2024-08-12 18:07] LABS: ALBUMIN 3.5 g/dL (3.4-5.0); BILIRUBIN,DIRECT 0.4 mg/dL (0.0-0.2); BILIRUBIN,TOTAL 1.6 mg/dL (0.2-1.0); TOTAL PROTEIN, SERUM 7.3 g/dL (6.4-8.2)
[2024-08-12 18:19] VITALS: BP 120/73; TEMP 99.2; O2SAT 96
[2024-08-15] MEDS ORDERED: NITR100C15 PO (09:00)
[2024-08-15] MEDS ORDERED: METH4TAB3 PO (09:06)
== END 2024-08-12 18:18 | disposition home or self-care (01) ==
LOC: ER 16:52
DX: N39.0 Urinary tract infection, site not specified (principal); E78.5 Hyperlipidemia, unspecified; F17.210 Nicotine dependence, cigarettes, uncomplicated; I10 Essential (primary) hypertension; N39.41 Urge incontinence; Z79.1 Long term (current) use of non-steroidal anti-inflammatories (NSAID); Z79.899 Other long term (current) drug therapy; Z95.5 Presence of coronary angioplasty implant and graft; Z87.09 Personal history of other diseases of the respiratory system
CPT/HCPCS: 36415; 80048-TC; 80076-TC; 81001; 85025-TC; 87086-TC; 87186-TC

== ENCOUNTER 2024-08-14 07:43 | Inpatient (IN) | payer BC ==
[~2024-08-14] VITALS: Ht 188 cm; Wt 98.0 kg
[2024-08-14] VITALS (13 sets, daily range): BP systolic 117–139; BP diastolic 68–94; TEMP 98.5; O2SAT 89–97
[~2024-08-14 07:43] MED LIST changes: +CEPH-570 PO
[2024-08-14] MEDS ORDERED: methylPREDNISolone SOD SUCC 125 MG/2ML VIAL ONE (08:08)
[2024-08-14] MEDS ORDERED: ONDANSETRON HCL/PF 4 MG/2 ML VIAL ONE (08:08)
[2024-08-14] MEDS: methylPREDNISolone SOD SUCC 125 MG/2ML VIAL IV ONE (08:12)
[2024-08-14] MEDS: ONDANSETRON HCL/PF 4 MG/2 ML VIAL IVP ONE (08:12)
[2024-08-14] MEDS ORDERED: EPINEPHRINE (1:1000) 1 MG/ML AMPUL ONE (08:13)
[2024-08-14] MEDS ORDERED: FAMOTIDINE/PF INJ 20 MG/2 ML VIAL IV ONE (08:14)
[2024-08-14 08:16] LABS: BASOPHILS % (AUTO) 0.4 % (0.0-2.0); EOSINOPHILS # (AUTO) 0.1 K/uL (0.0-0.7); EOSINOPHILS % (AUTO) 1.1 % (0.0-6.0); HEMATOCRIT 43 % (39-51); HEMOGLOBIN 14.8 g/dL (13.5-17.5); LYMPHOCYTES # (AUTO) 0.9 K/uL (0.8-4.8); LYMPHOCYTES % (AUTO) 19.4 % (20.0-44.0); MEAN CORPUSCULAR HEMOGLOBIN 34 PG (26.0-33.0); MEAN CORPUSCULAR HGB CONC 34 g/dl (31.0-36.0); MEAN CORPUSCULAR VOLUME 99 fL (80-96); MONOCYTES # (AUTO) 0.5 K/uL (0.1-1.30); MONOCYTES % (AUTO) 9.6 % (2.0-12.0); NEUTROPHILS # (AUTO) 3.4 K/uL (1.8-8.9); NEUTROPHILS % (AUTO) 69.5 % (43.0-81.0); PLATELET COUNT (AUTO) 118 K/uL (150-450); RED BLOOD CELL COUNT(AUTO) 4.39 MIL/uL (4.5-6.0); RED CELL DISTRIBUTION WIDTH 13.7 % (11.5-15.0); WHITE BLOOD COUNT (AUTO) 4.8 K/uL (4.3-11.0)
[2024-08-14] MEDS: EPINEPHRINE (1:1000) 1 MG/ML AMPUL SUBCUT ONE (08:18)
[2024-08-14] MEDS: FAMOTIDINE/PF INJ 20 MG/2 ML VIAL IV ONE (08:18)
[2024-08-14 08:37] LABS: ALBUMIN 3.7 g/dL (3.4-5.0); BILIRUBIN,DIRECT 0.2 mg/dL (0.0-0.2); BILIRUBIN,TOTAL 0.6 mg/dL (0.2-1.0); CALCIUM, SERUM 8.6 mg/dL (8.5-10.1); CREATININE 0.8 mg/dL (0.6-1.3); TOTAL PROTEIN, SERUM 7.3 g/dL (6.4-8.2)
[2024-08-14 08:41] LABS: INR 0.99 (0.91-1.10); PROTHROMBIN TIME 10.5 SECS (9.2-11.1)
[2024-08-14] MEDS: diphenhydrAMINE HCL 50 MG/ML VIAL IV ONE (08:45)
[2024-08-14 08:48] LABS: POTASSIUM 3.8 mmol/L (3.5-5.1)
[2024-08-14] MEDS: TRANEXAMIC ACID 1,000 MG in IV NS 0.9% 100 ML IV ONE (09:07)
[2024-08-14 10:05] LABS: APPEARANCE,URINE CLEAR (CLEAR); BILIRUBIN,URINE NEGATIVE (NEGATIVE); BLOOD, URINE 1+ Ery/uL (NEGATIVE); COLOR,URINE YELLOW (YELLOW); KETONES,URINE NEGATIVE (NEGATIVE); LEUKOCYTE ESTERASE ,URINE NEGATIVE (NEGATIVE); NITRITE, URINE NEGATIVE (NEGATIVE); PROTEIN,URINE NEGATIVE (NEGATIVE); UGLUCOSE NEGATIVE (NEGATIVE); UROBILINOGEN,URINE 0.2 EU/dL (0.2)
[2024-08-14 10:27] LABS: ADD URINE CULTURE NO; BACTERIA,URINE Rare /HPF (None Seen); SQUAMOUS EPITHELIAL CELL,UR 0-2 /HPF (None Seen); WBC,URINE 0-2 /HPF (0-3)
[2024-08-14] MEDS ORDERED: ONDANSETRON HCL/PF 4 MG/2 ML VIAL IVP PRN (12:30)
[2024-08-14] MEDS ORDERED: Z GUARD REMEDY 4 OZ OINT TP PRN (12:30)
[2024-08-14] MEDS ORDERED: ACETAMINOPHEN 325 MG TABLET PO PRN (12:30)
[2024-08-14] MEDS ORDERED: MAGNESIUM HYDROXIDE 30 ML UDC PO PRN (12:30)
[2024-08-14] MEDS: CARVEDILOL 6.25 MG TABLET PO SCH (16:56)
[2024-08-14] MEDS: NIFEdipine XL (30MG) 30 MG TAB PO SCH (16:56)
[2024-08-14] MEDS: NICOTINE PATCH (14MG) 14 MG PATCH.TD24 TD SCH (19:54)
[2024-08-14] MEDS ORDERED: NITROFURANTOIN/MONOHYDRATE MACROCRYSTALS 100 MG CAPSULE ONE (20:19)
[2024-08-14] MEDS: NITROFURANTOIN/MONOHYDRATE MACROCRYSTALS 100 MG CAPSULE PO SCH (20:23)
[2024-08-15] VITALS (11 sets, daily range): BP systolic 109–140; BP diastolic 65–92; TEMP 97.7–98.6; O2SAT 90–98
[2024-08-15 05:19] LABS: CALCIUM, SERUM 8.7 mg/dL (8.5-10.1); CREATININE 0.6 mg/dL (0.6-1.3); MAGNESIUM 2.2 mg/dL (1.8-2.4); PHOSPHORUS 2.3 mg/dL (2.5-4.9); POTASSIUM 3.7 mmol/L (3.5-5.1)
[2024-08-15 05:46] LABS: BASOPHILS % (AUTO) 0.2 % (0.0-2.0); EOSINOPHILS % (AUTO) 0.1 % (0.0-6.0); HEMATOCRIT 41 % (39-51); HEMOGLOBIN 13.7 g/dL (13.5-17.5); LYMPHOCYTES # (AUTO) 0.9 K/uL (0.8-4.8); LYMPHOCYTES % (AUTO) 15.2 % (20.0-44.0); MEAN CORPUSCULAR HEMOGLOBIN 33 PG (26.0-33.0); MEAN CORPUSCULAR HGB CONC 34 g/dl (31.0-36.0); MEAN CORPUSCULAR VOLUME 99 fL (80-96); MONOCYTES # (AUTO) 0.8 K/uL (0.1-1.30); MONOCYTES % (AUTO) 13.4 % (2.0-12.0); NEUTROPHILS % (AUTO) 71.1 % (43.0-81.0); PLATELET COUNT (AUTO) 133 K/uL (150-450); RED BLOOD CELL COUNT(AUTO) 4.11 MIL/uL (4.5-6.0); RED CELL DISTRIBUTION WIDTH 13.8 % (11.5-15.0); WHITE BLOOD COUNT (AUTO) 5.7 K/uL (4.3-11.0)
[2024-08-15] MEDS: EZETIMIBE 10 MG TABLET PO SCH (08:08)
[2024-08-15] MEDS: PANTOPRAZOLE 40 MG TABLET.DR PO SCH (08:08)
[2024-08-15] MEDS: NICOTINE PATCH (21MG) 21 MG PATCH.TD24 TD SCH (08:19)
[2024-08-15] MEDS ORDERED: NITR100C15 PO (09:00)
[2024-08-15] MEDS ORDERED: METH4TAB3 PO (09:06)
[2024-08-15] MEDS: NITROFURANTOIN/MONOHYDRATE MACROCRYSTALS 100 MG CAPSULE PO SCH (09:16)
== END 2024-08-15 10:57 | disposition home or self-care (01) | DRG 916 ==
LOC: ER 08:01 → ICU 12:13
PROVIDERS: ADMIT Nurse Practitioner Family; ATTEND Internal Medicine
DX: T78.3XXA Angioneurotic edema, initial encounter (principal); N39.0 Urinary tract infection, site not specified; T46.4X5A Adverse effect of angiotensin-converting-enzyme inhibitors, initial encounter; E78.1 Pure hyperglyceridemia; I10 Essential (primary) hypertension; I25.10 Atherosclerotic heart disease of native coronary artery without angina pectoris; Z95.5 Presence of coronary angioplasty implant and graft; R73.9 Hyperglycemia, unspecified; E78.5 Hyperlipidemia, unspecified; F17.210 Nicotine dependence, cigarettes, uncomplicated; Z79.899 Other long term (current) drug therapy; K21.9 Gastro-esophageal reflux disease without esophagitis; Z88.1 Allergy status to other antibiotic agents; T36.1X5A Adverse effect of cephalosporins and other beta-lactam antibiotics, initial encounter; J44.9 Chronic obstructive pulmonary disease, unspecified; G89.29 Other chronic pain; M19.90 Unspecified osteoarthritis, unspecified site
CPT/HCPCS: 36415; 71045-TC; 80048-TC; 80076-TC; 81001; 83735-TC; 84100-TC; 85025-TC; 85610-TC; 86850-TC; 87081-TC; A4223; G0378; J0171; J1200; J1308; J2405; J2919; J7030

== ENCOUNTER 2024-12-29 12:27 | Outpatient (CLI) | payer BC ==
[~2024-12-29 12:27] MED LIST changes: -BENA20TA9 PO; -CEPH-570 PO; -IBUP-1953 PO; -LIDO30AD10 TP; +METH4TAB3 PO; +NITR100C15 PO
[2024-12-29 13:18] LABS: APPEARANCE,URINE CLEAR (CLEAR); BLOOD, URINE NEGATIVE Ery/uL (NEGATIVE); LEUKOCYTE ESTERASE ,URINE NEGATIVE (NEGATIVE); NITRITE, URINE NEGATIVE (NEGATIVE); UGLUCOSE NEGATIVE (NEGATIVE)
[2024-12-29 13:21] LABS: IRON, SERUM 145.0 ug/dl (50-175)
[2024-12-29 13:29] LABS: ADD URINE CULTURE NO; SQUAMOUS EPITHELIAL CELL,UR Few /HPF (None Seen)
[2024-12-29 13:38] LABS: PLATELET COUNT (AUTO) 195 K/uL (150-450); RED BLOOD CELL COUNT(AUTO) 4.69 MIL/uL (4.5-6.0); RED CELL DISTRIBUTION WIDTH 14.0 % (11.5-15.0); WHITE BLOOD COUNT (AUTO) 9.4 K/uL (4.3-11.0)
[2024-12-29 13:40] LABS: GAMMA GLUTAMYL TRANSFERASE 197.0 U/L (5-85); LDL 113.0 mg/dL (0-99); PROSTATE SPECIFIC ANTIGEN SCR 0.73 ng/mL (0.00-4.00)
[2024-12-29 14:20] LABS: ASPARTATE AMINOTRANSFERASE 22.0 U/L (15-37); CALCIUM, SERUM 9.2 mg/dL (8.5-10.1); CREATININE 0.8 mg/dL (0.6-1.3); SODIUM SERUM 136.0 mmol/L (136-145); TOTAL PROTEIN, SERUM 7.0 g/dL (6.4-8.2); UREA NITROGEN, BLOOD 14.0 mg/dL (7-18)
[2024-12-30 08:07] LABS: VIT D, 25-HYDROXY 22.9 ng/mL (30.0-100.0)
[2024-12-30 12:12] LABS: FOLIC ACID 10.6 ng/mL (>3.0)
[2025-01-01 01:09] LABS: *TESTOSTERONE, FREE (DIRECT) 8.4 pg/mL (6.6-18.1)
== END 2024-12-29 23:59 | disposition home or self-care (01) ==
LOC: LAB 12:27
PROVIDERS: ATTEND Legal Medicine
DX: E11.9 Type 2 diabetes mellitus without complications (principal); E78.00 Pure hypercholesterolemia, unspecified; I10 Essential (primary) hypertension; Z00.00 Encounter for general adult medical examination without abnormal findings; E55.9 Vitamin D deficiency, unspecified; E03.9 Hypothyroidism, unspecified; D64.9 Anemia, unspecified
CPT/HCPCS: 36415; 80053-TC; 80061-TC; 81001; 82306; 82607-TC; 82728-TC; 82977-TC; 83540-TC; 83615-TC; 84153-TC; 84402-TC; 84439-TC; 84443-TC; 84550-TC; 85025-TC